=== PATIENT | male | born 1965 | race Caucasian/White ===

== ENCOUNTER 2016-06-10 22:18 | Inpatient (IN) ==
--- NOTE | 2016-06-10 23:16 | Emergency Department Note ---
Disposition Clinical Impression: Congestive heart failure Qualifiers: Congestive heart failure type: unspecified congestive heart failure type Congestive heart failure chronicity: unspecified congestive heart failure chronicity Qualified Code(s): I50.9 - Heart failure, unspecified Disposition: Admitted As Inpatient Condition: Good Time of Disposition: 23:40 SOB HPI - General Chief Complaint: ED Shortness of Breath/Dyspnea Stated Complaint: SOB Time Seen by Provider: 06/10/16 22:55 Source: patient, EMS Limitations: no limitations Nursing Notes Reviewed: Yes Vital Signs Reviewed: Yes - History of Present Illness Pt Subjective Complaint: shortness of breath Onset (ago): hour(s) Context: occurred during exertion Consistency/Duration: constant Improves with: nothing Worsens with: lying flat Known history of: congestive heart failure Treatment prior to arrival: aspirin, diuretics Cough present: No - Related Data Home Medications Medication Instructions Recorded Confirmed Aspirin 81 mg PO DAILY 06/11/16 06/11/16 Atorvastatin Calcium 40 mg PO HS 06/11/16 06/11/16 Bupropion HCl 150 mg PO DAILY 06/11/16 06/11/16 Carvedilol 6.25 mg PO BID 06/11/16 06/11/16 Cholecalciferol (Vitamin D3) 2,000 unit PO DAILY 06/11/16 06/11/16 Furosemide [Lasix] 40 mg PO DAILY 06/11/16 06/11/16 Glipizide 5 mg PO BID 06/11/16 06/11/16 Lisinopril 10 mg PO DAILY 06/11/16 06/11/16 Metformin HCl 850 mg PO TID 06/11/16 06/11/16 Spironolactone 06/11/16 Testosterone [Androderm] 2 mg TD DAILY 06/11/16 06/11/16 Allergies Allergy/AdvReac Type Severity Reaction Status Date / Time No Known Allergies Allergy Verified 06/10/16 22:20 All systems ED: reviewed and negative except as stated. Constitutional: Denies: fever, chills Eyes: Denies: eye pain ENT ED: Denies: ear pain Cardiovascular: Reports: as per HPI, dyspnea on exertion Respiratory: Reports: as per HPI Gastrointestinal: Denies: abdominal pain, nausea, vomiting Genitourinary: Denies: dysuria Musculoskeletal: Denies: back pain Integumentary: Denies: rash Neurological: Denies: weakness Hematological/Lymphatic: Denies: easy bleeding Allergic/Immunologic: Denies: facial swelling Past Medical History - Past Medical History Medical history: Reports: CHF, diabetes, hyperlipidemia Psychiatric history: Reports: depression - Social History Smoking Status: Never smoker Smokeless Tobacco Status: No Alcohol use: Reports: none Drug use: Reports: none Physical Exam - General Limitations: no limitations General appearance: alert Course Course Narrative: Patient is a 51-year-old male diabetic with known history of congestive heart failure that arrives via squad from [place]. He was seen over there for concern of dyspnea had started earlier today, that was accompanied with when he described as a vice senior software qa engineer pressure over his chest. He stated he was walking his dog when the dyspnea and chest pain started. He denied any nausea, diaphoresis, or radiation of pain to his extremities or neck. Patient states that he has not had a stress test in quite some time. He had been seeing a shipyard helper at the [facility] prior to the shipyard helper leaving. He does have his pacemaker analyzed there every 6 months. Denies any recent issues. He states he uses oxygen intermittently during the day, and during the night with his CPAP. Denies any h/o liver disease, or alcohol abuse. He had a chest x-ray that shows probable moderate pulmonary edema. he also had an abnormal CT with contrast that showed no evidence of pulmonary embolism however there was findings compatible with pulmonary edema and congestive heart failure. Patient tells me that since there were no beds available at the [facility] he was transferred here to [place] for further evaluation. Patient seen and examined. He is in no acute distress. Nontoxic. Likely tachycardic, 95 O2 sats on 2 L oxygen. EKG performed upon arrival, sinus tachycardia nonspecific T waves, no sign of ST changes. Patient states that his chest pain has improved. He is feeling comfortable at this time. Lungs sounds no crackles; mild LE edema but pt states no worse than normal. [facility]. Labs show elevatedLiver enzymes, CK, troponin within normal limits. d-dimer. Pt given 325mgASA and 10mg Lasix IV at [facility] - Reevaluation(s) Reevaluation #1: Discussed pt with hospitalist Dr. [place], who accepted patient, and also advised since pt only received 10mg IV lasix at [facility] will order a dose now. 20 mg if pt does not seem fluid overloaded. Time: 23:39 Vital Signs Temperature 98.7 F 06/10/16 22:20 Pulse Rate 108 06/10/16 22:20 Respiratory Rate 18 06/10/16 22:20 Blood Pressure 129/90 06/10/16 22:20 O2 Sat by Pulse Oximetry 92 L 06/10/16 22:20 Temperature 97.7 F 06/11/16 04:00 Pulse Rate 104 06/11/16 04:00 Respiratory Rate 20 06/11/16 04:00 Blood Pressure 145/2 06/11/16 04:00 O2 Sat by Pulse Oximetry 90 L 06/11/16 04:00 Oxygen Delivery Oxygen Delivery Nasal Cannula
[2016-06-10] MEDS ORDERED: Furosemide 20 MG/2 ML VIAL IVP ONE (23:35)
--- NOTE | 2016-06-10 23:49 | Emergency Department Note ---
START Narrative - START START: I examined this patient and my medical decision-making was reviewed with the EXCELLENCE LEADER/PA/Advanced Practice Nurse/Resident Physician. I agree with the documented findings, disposition and treatment plan as described except to the extent set forth below. This is a 51-year-old gentleman who was sent over from the [facility] for a CHF exacerbation. Patient states he has been short of breath for the last few hours. Patient denies any chest pain. Patient does have a pacemaker in place. Patient states he has never had any cardiac stents placed but he has had a heart cath in the past. Patient denies any fevers. Patient states she has actually been losing weight steadily over the last few months and has not gained any recently. Patient was accepted for admission. 23:49.
[2016-06-11] MEDS ORDERED: Dextrose Gel 15 GM PO PRN ×2 (03:28)
[2016-06-11] MEDS ORDERED: Acetaminophen 325 MG TABLET PO PRN (03:28)
[2016-06-11] MEDS ORDERED: *HR* Morphine 2 MG/ML SYRINGE IVP PRN (03:28)
[2016-06-11] MEDS ORDERED: Ondansetron 4 MG/2 ML VIAL IVP PRN (03:28)
[2016-06-11] MEDS ORDERED: *HR* Dextrose 50 % in Water (Syg) 50 ML SYRINGE IVP PRN (03:28)
[2016-06-11] MEDS ORDERED: D5% in Water 1,000 ML IV PRN (03:28)
[2016-06-11] MEDS ORDERED: Naloxone 0.4 MG/ML INJ IVP PRN (03:28)
--- NOTE | 2016-06-11 03:39 | Internal Med History&Physical ---
Date of Encounter: 06/11/16 Time of Encounter: 02:45 Internal Medicine - H&P: HPI Chief complaint: SOB X 1 DAY Admitted From: Hospital to Hospital Transfer Plans for Post Hospital Care: Home History of present illness: Mr. Winston is a 51 year old male Vet, with medical history significant for DM2 , fatty liver, NATHALY, non-ischemic cardiomyopathy s/p PPM/ICD, COPD on home oxygen , HTN as per patient. presents because at about 2 pm, he realized he developed tightness in his chest, and shortness of breath, AT THAT TIME HE WAS WALKING HIS DOG. It was The episode lasted 5-10 minutes, symptoms resolved when he sat down for some time. He had a similar episode on May 31, 2016. However , he did not think much of it at that time as symptoms resolved spontaneously. This time, he call and was sent to the [facility] by EMS, HOWEVER, THERE WERE NO BEDS AVAILABLE AT THE [facility], he was referred to [facility]. No nausea, diaphoresis, or radiation of pain to his extremities or neck. hE REPORT CHRONIC EXERTIONAL DYSPNEA, and orthopnea. He reports unintentional weight loss of about 20 lbs the past 4 months. HE HAS NEEN UNABLE TO LAY FLAT, PREFERRING TO USE HIS RECLINER RATHER. He reports he was diagnosed of CHF in 2012, he was informed his heart was working under 30%, he however reports that [facility] did not find significant blockages. He is FULL CODE as per discussion. Medical history: cirrhosis, CHF (systolic, chronic), COPD, diabetes, hyperlipidemia, hypertension, other (NATHALY) Psychiatric history: depression Surgical History: pacemaker/AICD Smoking Status: Never smoker Smokeless Tobacco Status: No Alcohol use: none Drug use: none Family history: mother was diabetic ROS: See HPI, a 10-point ROS was performed, positives and relevant negatives are detailed, system-symptoms not mentioned is assumed negative unless other lujan stated. Vital Signs Temperature 98.7 F 06/10/16 22:20 Pulse Rate 108 06/10/16 22:20 Respiratory Rate 18 06/10/16 22:20 Blood Pressure 129/90 06/10/16 22:20 O2 Sat by Pulse Oximetry 92 L 06/10/16 22:20 Temperature 98.7 F 06/10/16 22:20 Pulse Rate 108 06/10/16 22:20 Respiratory Rate 18 06/10/16 22:20 Blood Pressure 129/90 06/10/16 22:20 O2 Sat by Pulse Oximetry 95 06/10/16 22:28 O/E: Morbidly obese, not in distress, HEENT: Not pale, anicteric, afebrile, acyanotic, no JVD Chest: CTAB, AICD palpable Heart/CVS: RRR, HS1/2, no murmur Abdomen: distended, soft, non-tender, no masses. FISCAL ACCOUNTING CLERK: AAO x 3, no gross focal neurological deficits, PERRL/EOMI. Skin: No active skin lesion. Extremities: mild barely pitting pedal edema (chronic vs superimposed lymphedema ), normal pedal pulses, no calf tenderness Labs and imaging completed at [facility]. Reviewed . CT CHEST CXR: Consistent with cardiomegaly with moderate pulmonary edema He had a chest x-ray that shows probable moderate pulmonary edema. he also had an abnormal CT with contrast that showed no evidence of pulmonary embolism however there was findings compatible with pulmonary edema and congestive heart failure, with hepatic cirrhosis & mediastinal lymphadenopathy. Initial troponin 0.04, AST/ALT mildly elevated, BNP 1328. IMP Acute on chronic systolic heart failure Elevated troponin, like due to troponin leak/demand ischemia, given a history of clean coronaries in [facility] in 2012. Chronic morbidities Systolic CHF, non-ischemic cardiomyopathy HTN DM2 NATHALY Depression Morbid obesity PLAN Admit to telemetry 2D ECHO IV Lasix 60mg QD X 2 doses Monitior electrolytes. Cardiology consult. Continue other medications of chronic morbidities, including beta blockers, ACEI and statins DVT prophylaxis I discussed my findings and assessment with the patient, he verbalized understanding and is agreeable to admission. He is admitted for evaluation and treatment of acute on chronic systolic heart failure Past Med Surg Social Fam HX - Past Medical History Medical history: CHF, diabetes, hyperlipidemia Psychiatric history: depression - Social History Smoking Status: Never smoker Smokeless Tobacco Status: No Alcohol use: none Drug use: none - Family History Mother Hx Family Medical Disorders: Yes (diabetic) Internal Medicine - H&P: Meds Aspirin [Lo-Dose Aspirin EC] 81 mg PO DAILY 06/11/16 [History] Atorvastatin [Lipitor] 40 mg PO DAILY 06/11/16 [History] Bupropion HCl [Zyban] 150 mg PO DAILY 06/11/16 [History] Carvedilol [Coreg] 6.25 mg PO BID 06/11/16 [History] Cholecalciferol (D-3) [Vitamin D] 2,000 unit PO DAILY 06/11/16 [History] Furosemide [Lasix] 40 mg PO DAILY 06/11/16 [History] GlipiZIDE [Glucotrol] 5 mg PO BID 06/11/16 [History] Lisinopril [Zestril] 10 mg PO DAILY 06/11/16 [History] Metformin [Glucophage] 850 mg PO TID 06/11/16 [History] Spironolactone [Aldactone] 25 mg PO DAILY 06/11/16 [History] Testosterone [Androderm] 2 mg TD DAILY 06/11/16 [History] Allergies No Known Allergies Allergy (Verified 06/10/16 22:20) All Systems PM: A 10-system review of systems was performed and is negative for pertinent findings except as documented above in the HPI. - Constitutional Vitals: Temp Pulse Resp BP Pulse Ox 98.1 F 102 22 122/85 93 L 06/11/16 01:07 06/11/16 01:07 06/11/16 01:07 06/11/16 01:07 06/11/16 01:07 Internal Med - H&P Results - Labs CBC & Chem 7: 06/11/16 09:53 06/12/16 12:13
[2016-06-11 05:11] LABS: Chol/HDL Ratio 6.1 (0-4.9)
--- NOTE | 2016-06-11 06:44 | Event Note ---
Date of Encounter: 06/11/16 Time of Encounter: 05:10 I had ordered solumedrol to control a susposedly rapidly progressive erythematous rash (as I was informed had spread and was more in ense over a matter of hours), patient developed aggression subseqtly. IMP Dermatitis, report of rapid progression. Corticosteroid-induced psychotic episode. Sleep apnea PLAN 1 dose of Ativan and Haloperidol, 1mg and 2.5mg respectively DC SOLUMEDROL De-escalate to 2 point restraint Maintain a sitter BiPAP, continous pulse ox.
[2016-06-11] MEDS ORDERED: *HR* GlipiZIDE 5 MG TABLET PO SCH (09:00)
--- NOTE | 2016-06-11 09:19 | Internal Med Progress Note ---
<Kevin Kaur - Last Filed: 06/11/16 11:02> Date of Encounter: 06/11/16 Time of Encounter: 09:18 - Assessment and plan (1) Acute on chronic systolic (congestive) heart failure Current Visit: Yes Status: Acute Assessment and plan: Per pt, last echo in 2012, EF was around 30%, AICD in place, cardio was consulted, obtain echo, con't IV lasix, strict i and o's, check daily weight and daily fluid restriction. Con't coreg and lisinopril. (2) Elevated troponin Current Visit: Yes Status: Acute Assessment and plan: Adynamic, no active chest pain, likely 2/2 demand ischemia in a setting of acute on chronic systolic CHF. (3) AICD (automatic cardioverter/defibrillator) present Current Visit: Yes Status: Acute (4) HLD (hyperlipidemia) Current Visit: Yes Status: Acute Assessment and plan: Lipid panel reviewed, con't zocor, diet and lifestyle modifications. Qualifiers: Qualified Code(s): E78.5 - Hyperlipidemia, unspecified (5) DM (diabetes mellitus), type 2 Current Visit: Yes Status: Acute Assessment and plan: Hold po home med, con't SSI. Qualifiers: Qualified Code(s): E11.9 - Type 2 diabetes mellitus without complications (6) DVT prophylaxis Current Visit: Yes Status: Acute Assessment and plan: Lovenox sq. - Subjective Interval history: Pt seen and examined, states that SOB is better than yesterday, chest pressure gone. - Constitutional Vitals: Temp Pulse Resp BP Pulse Ox 97.6 F 101 14 129/92 90 L 06/11/16 07:57 06/11/16 07:57 06/11/16 07:57 06/11/16 07:57 06/11/16 07:57 General appearance: Present: cooperative, A&O X 3, morbidly obese, pleasant, answers questions appropriately - Head Head exam: Present: atraumatic, normocephalic - Eye Eye exam: Present: PERRL, conjuntiva pink, sclera anicteric Pupils: Present: PERRL - Neck Neck exam general surgery: Present: supple, trachea midline. Absent: lymphadenopathy - Respiratory Respiratory exam: Present: rales (at base b/l). Absent: accessory muscle use, rhonchi, wheezes - Cardiovascular Cardiovascular exam: Present: RRR, +S1, +S2. Absent: diastolic murmur, gallop, rubs, systolic murmur - GI/Abdominal GI/Abdominal exam: Present: normal bowel sounds, soft, no peritoneal signs. Absent: distended, tenderness - Extremities Exam Extremities exam: Present: pedal edema (mild non-pitting b/l), warm, radial pulses palpable and symetrical. Absent: calf tenderness, cyanotic - Neurological Exam Neurological exam: Present: CN II-XII intact, oriented X3, no focal deficits. Absent: pronater drift, facial droop, speech deficit - Skin Skin exam: Present: dry, intact Internal Medicine: Result - Labs CBC & Chem 7: 06/11/16 09:53 06/11/16 09:53 Labs: Cardiac Enzymes 06/11/16 Range/Units 04:13 Troponin I 0.07 H* (0-0.03) ng/mL Consult Discharge Plan - Plan [facility]errals: [facility] [Primary Care Provider] - <Luke Victoria - Last Filed: 06/11/16 17:32> Date of Encounter: 06/11/16 - Assessment and plan (1) Acute and chronic respiratory failure with hypoxia Current Visit: Yes Status: Acute Assessment and plan: Oxygen supplementation. (2) Acute on chronic systolic (congestive) heart failure Current Visit: Yes Status: Acute (3) DM (diabetes mellitus), type 2 Current Visit: Yes Status: Chronic Qualifiers: Diabetes mellitus complication status: with hyperglycemia Diabetes mellitus [facility] insulin use: without [facility] use Qualified Code(s): E11.65 - Type 2 diabetes mellitus with hyperglycemia (4) HLD (hyperlipidemia) Current Visit: Yes Status: Chronic Qualifiers: Hyperlipidemia type: mixed hyperlipidemia Qualified Code(s): E78.2 - Mixed hyperlipidemia (5) Elevated troponin Current Visit: Yes Status: Acute - Constitutional Vitals: Temp Pulse Resp BP Pulse Ox 97.9 F 91 14 91/76 87 L 06/11/16 15:15 06/11/16 15:15 06/11/16 15:15 06/11/16 15:15 06/11/16 15:15 Internal Medicine: Result - Labs CBC & Chem 7: 06/11/16 09:53 06/11/16 09:53 Labs: Short CBC 06/11/16 Range/Units 09:53 WBC 8.8 (4.3-11.1) K/mcL Hgb 14.4 (12.9-16.9) g/dL Hct 42.8 (37.5-50.1) % Plt Count 221 (140-400) K/mcL Neutrophils # 6.3 (1.6-8.9) K/mcL BMP 06/11/16 09:53 Sodium 138 Potassium 3.7 Chloride 98 Carbon Dioxide 29 BUN 13 Creatinine 0.95 Glucose 251 H Calcium 9.7 Cardiac Enzymes 06/11/16 06/11/16 Range/Units 04:13 09:53 Troponin I 0.07 H* 0.06 H* (0-0.03) ng/mL - Attending Attestation I examined this patient and my medical decision-making was reviewed with the Resident Physician on 06/11/16. I agree with the documented findings, disposition and treatment plan as described except to the extent set forth below. Mr. Winston is currently admitted for acute hypoxic resp failure from acute exac CHF. He remains moderate to high risk due to potential for worsening respiratory function and cardiac function. Mr. Winston is starting to feel better. He has diuresed quite a bit. No cough. No fever. Can take a deep breath now. Exam Alert. Comfortable Heart reg Lungs with rales bilaterally Abd soft I/P 1. Acute exc CHF 2. Hypoxia 3. Obesity Further diagnoses and plan as above.
[2016-06-11] MEDS: Insulin LISPRO 300 UNITS/3 ML VIAL SQ SCH ×4 (09:54→21:24)
[2016-06-11] MEDS: *HR* Enoxaparin 40 MG/0.4 ML SYRINGE SQ SCH (09:54)
[2016-06-11] MEDS: Aspirin 81 MG TAB.CHEW PO SCH (09:55)
[2016-06-11] MEDS: TESTOSTERONE 2 MG TP SCH (09:56)
[2016-06-11] MEDS: Furosemide 40 MG/4 ML VIAL IVP SCH (09:56)
[2016-06-11] MEDS: Cholecalciferol (D-3) 1,000 UNIT TABLET PO SCH (09:57)
[2016-06-11 10:04] LABS: Basophils # 0.1 K/mcL (0.0-0.2); Basophils % 0.7 %; Eosinophils # 0.3 K/mcL (0.0-0.6); Eosinophils % 3.3 %; Hematocrit 42.8 % (37.5-50.1); Hemoglobin 14.4 g/dL (12.9-16.9); Immature Granulocytes % 0.3 % (0-4); Lymphocytes # 1.5 K/mcL (0.6-4.6); Lymphocytes % 16.8 %; Mean Corpuscular HGB Conc 33.6 g/dL (31.6-35.5); Mean Corpuscular Hemoglobin 30.1 pg (28.0-33.3); Mean Corpuscular Volume 89.5 fL (83.0-100.0); Mean Platelet Volume 10.2 fL (9.4-12.4); Monocytes # 0.7 K/mcL (0.0-1.3); Monocytes % 7.5 %; Neutrophils # 6.3 K/mcL (1.6-8.9); Platelet Count 221 K/mcL (140-400); Red Blood Count 4.78 M/mcL (4.19-5.50); Red Cell Distribution Width 13.9 % (11.5-14.5); Segmented Neutrophils % 71.4 %
--- NOTE | 2016-06-11 10:16 | Cardiology Consult Note ---
Date of Encounter: 06/11/16 Time of Encounter: 09:50 Assessment and Plan (1) Elevated troponin Current Visit: Yes Status: Acute Mild adynamic troponin elevation (0.04, 0.07) in the setting of acute on chronic CHF. Likely secondary to demand ischemia. No ischemic ECG changes. Reported LHC in 2013--was told no significant blockages. Continue asa, statin, and betablocker. Continue to trend troponin to total 3. Echocardiogram pending. (2) Congestive heart failure Current Visit: Yes Status: Acute Suspect acute on chronic systolic CHF. Reports dx in 2013, EF reportedly 28%, had LHC and told no significant blockages. Reports PPM/ICD implant, follows with [facility] in [place] for device checks. CT chest ([facility]): small bilateral pleural effusions, CHF/pulmonary edema. IV lasix given at [facility]--reports symptoms have improved. Echocardiogram pending. Continue IV lasix, betablocker, ACEi, and aldactone. Strict I&O's, daily weights, 2L fluid restriction diet. Reports [facility] Piercer retired, recommend follow-up with [facility]. Qualifiers: Congestive heart failure type: systolic Congestive heart failure chronicity : acute on chronic Qualified Code(s): I50.23 - Acute on chronic systolic ( congestive) heart failure Discussion w patient/family: The assessment and plan as outlined above was discussed with the patient and/or family members who expressed understanding and agreement. All questions were answered. Thank you for involving us in the care of your patient. Please call with any questions. The patient will be discussed and reviewed with Dr. Novoa; changes to be made accordingly. History of Present Illness Consult date: 06/11/16 Requesting physician: Steve England Consult reason: Elevated troponin Chief complaint: Chest sqeezing, CHF History of present illness: Mr. Winston is a 51 year old male with PMH significant for DMII, fatty liver, NATHALY, sCHF s/p PPM/ICD, COPD (home O2), & HTN who presented to the [facility] after an episode of chest squeezing yesterday after taking his dog outside. Associated symptoms include shortness of breath. Reports symptoms lasted 2-3 minutes; improved after he sat down. Recalls similar episode, mild, on . Reports medication compliance. States intentional weight loss (~20 lbs) over the past 4 months. Describes chronic orthopnea--unable to lay flat, sleeps in recliner. [facility] Initial troponin 0.04, AST/ALT mildly elevated, BNP 1328. CT thorax demonstrates pulmonary edema, small bilateral pleural effusions, CHF; cirrhosis & mediastinal lymphadenopathy also described (negative for PE) Reports dx of CHF in 2013--he was told his heart was only working "28%." Underwent LHC at that time and told he did not have significant blockages. Past Med Surg Social Fam HX - Past Medical History Source: old records reviewed Medical history: cirrhosis, CHF (systolic, chronic), COPD, diabetes, hyperlipidemia, hypertension, other (NATHALY) Psychiatric history: depression - Past Surgical History Surgical History: pacemaker/AICD - Social History Smoking Status: Never smoker Smokeless Tobacco Status: No Alcohol use: none Drug use: none - Family History Mother Hx Family Medical Disorders: Yes (diabetic) Medications and Allergies Aspirin [Lo-Dose Aspirin EC] 81 mg PO DAILY 06/11/16 [History] Atorvastatin [Lipitor] 40 mg PO DAILY 06/11/16 [History] Bupropion HCl [Zyban] 150 mg PO DAILY 06/11/16 [History] Carvedilol [Coreg] 6.25 mg PO BID 06/11/16 [History] Cholecalciferol (D-3) [Vitamin D] 2,000 unit PO DAILY 06/11/16 [History] Furosemide [Lasix] 40 mg PO DAILY 06/11/16 [History] GlipiZIDE [Glucotrol] 5 mg PO BID 06/11/16 [History] Lisinopril [Zestril] 10 mg PO DAILY 06/11/16 [History] Metformin [Glucophage] 850 mg PO TID 06/11/16 [History] Spironolactone [Aldactone] 25 mg PO DAILY 06/11/16 [History] Testosterone [Androderm] 2 mg TD DAILY 06/11/16 [History] Allergies No Known Allergies Allergy (Verified 06/10/16 22:20) All Systems Review: A 10-system review of systems was performed and is negative for pertinent findings except as documented above in the HPI. - Cardiovascular Cardiovascular: as per HPI Physical Examination Vital Signs, Last 4 Hours Temp Pulse Resp BP Pulse Ox 06/11/16 07:57 97.6 F 101 14 129/92 90 L General: Conversant, No Apparent Distress, Other (morbidly obese) Cardiac: Reg Rate and Rhythm (tachycardiac) Lungs: Other (Bibasilar rales) Neuro: Alert and responsive Abdomen: Soft Skin: No rashes noted on visualized skin Musculoskeletal: No Chest Wall Tenderness Extremities: Normal Pulses, Other (BLE edema, states is chronic) Results 06/11/16 09:53 06/11/16 09:53 Lab Results 06/11/16 06/11/16 04:13 09:53 WBC 8.8 Hgb 14.4 Hct 42.8 Plt Count 221 Troponin I 0.07 H* - Imaging and Cardiology Other Results: Telemetry: avg HR HR [address] ST. No signficant events noted. - EKG Interpretation EKG results cardiology: personally reviewed Consult Discharge Plan - Plan [facility]errals: [facility] [Primary Care Provider] -
[2016-06-11 10:17] LABS: BUN/Creatinine Ratio 14 (6-26); Blood Urea Nitrogen 13 mg/dL (8-26); Calcium 9.7 mg/dL (8.6-10.8); Carbon Dioxide 29 mEq/L (19-29); Chloride 98 mEq/L (98-109); Glucose 251 mg/dL (70-99); Magnesium 1.9 mg/dL (1.6-2.6); Osmolality,Calculated 295 (280-300); Potassium 3.7 mEq/L (3.5-4.5); Sodium 138 mEq/L (136-145); eGFR For African Americans > 60 (> 60); eGFR For Non-African Americans > 60 (> 60)
--- NOTE | 2016-06-11 11:52 | Electrocardiograph Report ---
[facility] Test Date: 2016-06-10 Pat Name: Ken Winston Department: 105 Room: 2NE23 Gender: M [employer] Officer: JOHNSON : 1965 Requested By: Orlin Turner Order Number: [id number] Reading MD: Hebert Colón MD Measurements Intervals [place] Rate: 106 P: 47 LA: 176 QRS: 4 QRSD: 129 T: 75 QT: 367 QTc: 429 Interpretive Statements SINUS TACHYCARDIA INTRAVENTRICULAR CONDUCTION DELAY POOR R WAVE PROGRESSION Electronically Signed On 06-11-16 11:52:26 EST by Hebert Colón MD
[2016-06-11] MEDS ORDERED: Perflutren Lipid Microsphere 1.3 ML in 0.9 % Sodium Chloride 8.7 ML IVP ONE (13:41)
--- NOTE | 2016-06-11 14:34 | ECHO - Doppler Report ---
Echo with Imaging Enhancement Agent Name: Ken Winston Date of Study: 06/11/2016 Date: 1965 Ht: 69.0 in Medical Record#: [id number] Age: 51 Wt: 306.0 lb Gender: Male BSA: 2.47 Order #: [id number] Location: [facility] Room #: [id number] Reading Physician: Manny Hodge DO, JOSE ANTONIO, HEATHER VENCES Business Management Intern: Rupesh Farrell RN Ordering Physician: Micah Sotelo MD Primary Physician: [facility] Indications: Congestive heart failure Impressions: LVEF 20%. Severely dilated left ventricle. Severe global left ventricular systolic dysfunction. Indeterminate diastolic function. There is no LV thrombus. Dilated right ventricle with normal appearing function. Severely dilated left atrium. Moderately dilated right atrium. Moderate mitral regurgitation. Mild pulmonary hypertension. Estimated RVSP is 41 mmHg. A device lead was visualized in the right atrium and right ventricle. Left Ventricular Wall Motion: Rest Echo Findings The apex, apical inferior, mid inferior, basal inferior, apical anterior, mid anterior, basal anterior, apical septal, mid inferior septal, basal inferior septal, apical lateral, mid anterior lateral, basal anterior lateral, mid anterior septal, mid inferior lateral, basal anterior septal and basal inferior lateral banegas were hypokinetic. Findings: Study Quality * Technically sub-optimal due to poor echocardiographic windows. ECG Findings * Sinus tachycardia. Left Ventricle * LVEF 20%. * Normal LV wall thickness. * Severely dilated left ventricle. * Severe global left ventricular systolic dysfunction. * Indeterminate diastolic function. * There is no LV thrombus. Right Ventricle * Dilated right ventricle with normal appearing function. Left Atrium * Severely dilated left atrium. Right Atrium * Moderately dilated right atrium. Interatrial Septum * Interatrial septum not well evaluated. Aortic Valve * Trileaflet aortic valve with normal function. * No aortic regurgitation. * No aortic stenosis. Mitral Valve * Normal mitral valve structure. * Moderate mitral regurgitation. * No mitral stenosis. Tricuspid Valve * Normal tricuspid valve structure and function. * Trace tricuspid regurgitation. * Mild pulmonary hypertension. * Estimated RVSP is 41 mmHg. * Estimated RA pressure is 5 mmHg. Pulmonic Valve * Normal pulmonic valve structure and function. * Trace pulmonic regurgitation. Aorta * Normally sized aortic root. Pericardium * The pericardium appears normal. IVC * Normal IVC dimensions and inspiratory collapse. Device lead * A device lead was visualized in the right atrium and right ventricle. Pulmonary Artery * Normal visualized portions of the main pulmonary artery. History Hypertension Diabetes Hypercholesteremia Family History of CAD Congestive Heart Failure Pacer/ICD Implant Contrast: Definity 1.3 ml in 8.7 ml of saline 3 ml. Measurements: BP: 119/ 90 2D Normal Values RVIDd: 3.30 cm <2.7 cm IVSd: 1.00 cm 0.6 - 1.0 cm LVIDd: 8.00 cm 3.7 - 5.6 cm LVPWd: 1.00 cm 0.6 - 1.1 cm LVIDs: 7.00 cm 1.5 - 3.6 cm LA: 5.20 cm 2.0 - 4.0cm %FS: 12.50 cm >25 % LVOT Diam: 2.00 cm LA volume: 200 Mitral Valve Peak E:.98 m/sec Peak E' Lat Yong:12.7 cm/s Peak E' Med Yong:5.36 cm/s E/E' Lat Ratio:7.7 E/E' Med Ratio:18.2 Tricuspid Valve TV Regurg Peak Grad: 36.00mmHg TV Regurg Peak Yong: 2.99m/sec Updated by Manny Hodge DO, FACStefano, HEATHER VENCES on 06/11/2016 2:29:22 PM electronically signed on 06/11/2016 2:29:47 PM with status of Final Wall Motion Still: 1=Normal, 2=Hypokinesis, 3=Akinesis, 4=Dyskinesis, 5=Aneurysmal, 6=Hyperkinetic, X=Not Visualized (Blank)=Missing
[2016-06-12] MEDS ORDERED: Lactulose Oral Soln 20 GM/30 ML UDC PO ONE (00:50)
[2016-06-12] MEDS: *HR* Enoxaparin 40 MG/0.4 ML SYRINGE SQ SCH (06:16)
[2016-06-12] MEDS: Aspirin 81 MG TAB.CHEW PO SCH (08:02)
[2016-06-12] MEDS: Cholecalciferol (D-3) 1,000 UNIT TABLET PO SCH (08:02)
[2016-06-12] MEDS: Furosemide 40 MG/4 ML VIAL IVP SCH (08:03)
[2016-06-12] MEDS: TESTOSTERONE 2 MG TP SCH (08:03)
[2016-06-12] MEDS: Insulin LISPRO 300 UNITS/3 ML VIAL SQ SCH ×4 (08:04→21:17)
--- NOTE | 2016-06-12 10:05 | Internal Med Progress Note ---
<Kevin Kaur - Last Filed: 06/12/16 14:56> Date of Encounter: 06/12/16 Time of Encounter: 10:05 - Assessment and plan (1) Acute on chronic systolic (congestive) heart failure Current Visit: Yes Status: Acute Assessment and plan: Echo showed LVEF of 20%, AICD in place, cardio was consulted, adjusted coreg dosage and switch back po lasix home dosage, clinically improving, likely to be d/c tmw. (2) Elevated troponin Current Visit: Yes Status: Acute Assessment and plan: Adynamic, no active chest pain, likely 2/2 demand ischemia in a setting of acute on chronic systolic CHF. (3) HLD (hyperlipidemia) Current Visit: Yes Status: Chronic Assessment and plan: Lipid panel reviewed, con't zocor, diet and lifestyle modifications. (4) DM (diabetes mellitus), type 2 Current Visit: Yes Status: Chronic Assessment and plan: Hold po home med, con't SSI. (5) DVT prophylaxis Current Visit: Yes Status: Acute Assessment and plan: Lovenox sq. - Subjective Interval history: Pt seen and examined, states that SOB is better than yesterday, chest pressure gone. - Constitutional Vitals: Temp Pulse Resp BP Pulse Ox 97.9 F 96 18 111/77 92 L 06/12/16 07:48 06/12/16 07:48 06/12/16 07:48 06/12/16 07:48 06/12/16 07:51 General appearance: Present: cooperative, A&O X 3, morbidly obese, pleasant, answers questions appropriately - Head Head exam: Present: atraumatic, normocephalic - Eye Eye exam: Present: PERRL, conjuntiva pink, sclera anicteric Pupils: Present: PERRL - Neck Neck exam general surgery: Present: supple, trachea midline. Absent: lymphadenopathy - Respiratory Respiratory exam: Present: rales (at base b/l). Absent: accessory muscle use, rhonchi, wheezes - Cardiovascular Cardiovascular exam: Present: RRR, +S1, +S2. Absent: diastolic murmur, gallop, rubs, systolic murmur - GI/Abdominal GI/Abdominal exam: Present: normal bowel sounds, soft, no peritoneal signs. Absent: distended, tenderness - Extremities Exam Extremities exam: Present: warm, radial pulses palpable and symetrical. Absent : calf tenderness, cyanotic, pedal edema - Neurological Exam Neurological exam: Present: CN II-XII intact, oriented X3, no focal deficits. Absent: pronater drift, facial droop, speech deficit - Skin Skin exam: Present: dry, intact Internal Medicine: Result - Labs CBC & Chem 7: 06/11/16 09:53 06/12/16 12:13 Labs: Short CBC 06/11/16 Range/Units 09:53 WBC 8.8 (4.3-11.1) K/mcL Hgb 14.4 (12.9-16.9) g/dL Hct 42.8 (37.5-50.1) % Plt Count 221 (140-400) K/mcL Neutrophils # 6.3 (1.6-8.9) K/mcL BMP 06/11/16 09:53 Sodium 138 Potassium 3.7 Chloride 98 Carbon Dioxide 29 BUN 13 Creatinine 0.95 Glucose 251 H Calcium 9.7 Cardiac Enzymes 06/11/16 Range/Units 09:53 Troponin I 0.06 H* (0-0.03) ng/mL Consult Discharge Plan - Plan Instructions: Heart Failure (DC), Implantable Cardioverter Defibrillator (DC), Implantable Cardioverter Defibrillator (GEN), Diabetes Mellitus Type 2 in Adults (DC), Hyperlipidemia (DC), Hyperlipidemia (GEN) Referrals: [place],PCP [Primary Care Provider] - Manny Hodge DO [Partnered Physician] - 06/24/16 2:00 pm (follow up at [facility]) <Luke Victoria - Last Filed: 06/12/16 18:05> Date of Encounter: 06/12/16 - Assessment and plan (1) Acute and chronic respiratory failure with hypoxia Current Visit: Yes Status: Acute (2) Acute on chronic systolic (congestive) heart failure Current Visit: Yes Status: Acute (3) DM (diabetes mellitus), type 2 Current Visit: Yes Status: Chronic Qualifiers: Diabetes mellitus complication status: with hyperglycemia Diabetes mellitus detention insulin use: without equipment operator intermodal yard use Qualified Code(s): E11.65 - Type 2 diabetes mellitus with hyperglycemia (4) HLD (hyperlipidemia) Current Visit: Yes Status: Chronic Qualifiers: Hyperlipidemia type: mixed hyperlipidemia Qualified Code(s): E78.2 - Mixed hyperlipidemia (5) Elevated troponin Current Visit: Yes Status: Acute - Constitutional Vitals: Temp Pulse Resp BP Pulse Ox 97.3 F L 102 18 116/87 95 06/12/16 17:00 06/12/16 17:00 06/12/16 17:00 06/12/16 17:00 06/12/16 17:00 Internal Medicine: Result - Labs CBC & Chem 7: 06/11/16 09:53 06/12/16 12:13 Labs: BMP 06/12/16 12:13 Sodium 135 L Potassium 4.1 Chloride 97 L Carbon Dioxide 27 BUN 17 Creatinine 0.89 Glucose 201 H Calcium 9.9 - Attending Attestation I examined this patient and my medical decision-making was reviewed with the Resident Physician on 06/12/16. I agree with the documented findings, disposition and treatment plan as described except to the extent set forth below. Mr. Winston is currently admitted for acute hypoxic resp failure due to CHF. He remains moderate to high risk due to potential of worsening cardiac and respiratory function. Mr. Winston is feeling somewhat better today. He has diuresed well on IV Lasix. No CP or GI symptoms. Has not walked floor much but is able to get to bathroom without much difficulty. Exam Alert. Comfortable Heart reg Lungs diminished Less edema I/P 1. Acute on chronic hypoxic resp failure 2. Acute exac chronic systolic CHF Further diagnoses and plan as above.
[2016-06-12 13:02] LABS: BUN/Creatinine Ratio 19 (6-26); Blood Urea Nitrogen 17 mg/dL (8-26); Calcium 9.9 mg/dL (8.6-10.8); Carbon Dioxide 27 mEq/L (19-29); Chloride 97 mEq/L (98-109); Glucose 201 mg/dL (70-99); Osmolality,Calculated 287 (280-300); Sodium 135 mEq/L (136-145); eGFR For African Americans > 60 (> 60); eGFR For Non-African Americans > 60 (> 60)
[2016-06-12 13:14] LABS: Potassium 4.1 mEq/L (3.5-4.5)
--- NOTE | 2016-06-12 14:50 | Cardiology Progress Note ---
Date of Encounter: 06/12/16 Time of Encounter: 14:48 Assessment and Plan (1) Congestive heart failure Current Visit: Yes Status: Acute Acute on chronic systolic CHF. Known non-ischemic cardiomyopathy. TTE EF 20%, severely dilated LV, no LV thrombus, dilated RV, moderatly dilated RA. Moderate mitral regurgitation. Reports dx in 2013, EF reportedly 28%, had LHC and told no significant blockages. Reports PPM/ICD implant, follows with [facility] in [place] for device checks. CT chest ([facility]): small bilateral pleural effusions, CHF/pulmonary edema. IV lasix given at [facility]--reports symptoms have improved. Symptoms improved. Net negative 1800 ml. Also diuresed at the [facility] prior to arrival to [facility]. Symptoms improved. Increase carvedilol to 12.5 mg BID. Continue lisinopril. Change lasix to oral maintenance dose. F/u with cardiology in 1-2 weeks. I will coordinate appt. Recommend [facility] heart failure clinic referral in out-pt setting. Cardiology will sign off. Qualifiers: Congestive heart failure type: systolic Congestive heart failure chronicity : acute on chronic Qualified Code(s): I50.23 - Acute on chronic systolic ( congestive) heart failure (2) Elevated troponin Current Visit: Yes Status: Acute Mild adynamic troponin elevation (0.04, 0.07) in the setting of acute on chronic CHF. Likely secondary to demand ischemia. No ischemic ECG changes. Reported LHC in 2012--was told no significant blockages. Continue asa, statin, and betablocker. Discussion w patient/family: The assessment and plan as outlined above was discussed with the patient and/or family members who expressed understanding and agreement. All questions were answered. Thank you for involving us in the care of your patient. Please call with any questions. Subjective Principal diagnosis: Non-ischemic cardiomyoapthy Interval history: Pt reports feeling better after IV diuretic. Denies orthpnea. Objective Vital Signs, Last 4 Hours Temp Pulse Resp BP Pulse Ox 06/12/16 12:17 97.6 F 100 18 103/83 95 General: Conversant, No Apparent Distress HEENT: Atraumatic, Normocephaly, Mucus Membranes Moist Neck: No JVD, Normal carotid pulses Cardiac: Reg Rate and Rhythm, Normal S1 and S2, No Murmur Lungs: Normal Breath Sounds, No Wheeze, Rales, Rhonchi Neuro: Alert and responsive, No focal deficits noted Abdomen: Soft, Non-Tender, Other (Large and round) Skin: No rashes noted on visualized skin Musculoskeletal: No Chest Wall Tenderness Extremities: No Clubbing, No Cyanosis, Normal Pulses, Other (Trace BLE edema. ) Results 06/11/16 09:53 06/12/16 12:13 Lab Results 06/12/16 12:13 Sodium 135 L Potassium 4.1 Chloride 97 L Carbon Dioxide 27 BUN 17 Creatinine 0.89 Glucose 201 H Calcium 9.9 - Imaging and Cardiology Echo: report reviewed (EF 20%) Consult Discharge Plan - Plan Instructions: Heart Failure (DC), Implantable Cardioverter Defibrillator (DC), Implantable Cardioverter Defibrillator (GEN), Diabetes Mellitus Type 2 in Adults (DC), Hyperlipidemia (DC), Hyperlipidemia (GEN) Referrals: [facility] [Primary Care Provider] -
[2016-06-12] MEDS: Furosemide 40 MG TABLET PO SCH (16:54)
[2016-06-13] MEDS: *HR* Enoxaparin 40 MG/0.4 ML SYRINGE SQ SCH (05:32)
--- NOTE | 2016-06-13 07:30 | Internal Med Progress Note ---
Date of Encounter: 06/13/16 Time of Encounter: 07:29 - Assessment and plan (1) Acute on chronic systolic (congestive) heart failure Current Visit: Yes Status: Acute (2) Elevated troponin Current Visit: Yes Status: Acute (3) HLD (hyperlipidemia) Current Visit: Yes Status: Chronic Qualifiers: Hyperlipidemia type: mixed hyperlipidemia Qualified Code(s): E78.2 - Mixed hyperlipidemia (4) DM (diabetes mellitus), type 2 Current Visit: Yes Status: Chronic Qualifiers: Diabetes mellitus complication status: with hyperglycemia Diabetes mellitus fci insulin use: without manager intermediate use Qualified Code(s): E11.65 - Type 2 diabetes mellitus with hyperglycemia (5) DVT prophylaxis Current Visit: Yes Status: Acute - Subjective Interval history: Pt seen and examined, states that SOB is better than yesterday, chest pressure gone. - Constitutional Vitals: Temp Pulse Resp BP Pulse Ox 98.9 F 100 18 153/92 95 06/13/16 03:59 06/13/16 03:59 06/13/16 04:15 06/13/16 03:59 06/13/16 04:15 General appearance: Present: cooperative, A&O X 3, morbidly obese, pleasant, answers questions appropriately Internal Medicine: Result - Labs CBC & Chem 7: 06/11/16 09:53 06/12/16 12:13 Labs: BMP 06/12/16 12:13 Sodium 135 L Potassium 4.1 Chloride 97 L Carbon Dioxide 27 BUN 17 Creatinine 0.89 Glucose 201 H Calcium 9.9 - Impressions Impressions KUB X-Ray 06/12/16 22:13 IMPRESSION: Bowel-gas pattern suggests ileus. D/ / Rao Means MD / Rao Means MD Interpreting Provider: Rao Means MD Consult Discharge Plan - Plan Instructions: Heart Failure (DC), Implantable Cardioverter Defibrillator (DC), Implantable Cardioverter Defibrillator (GEN), Diabetes Mellitus Type 2 in Adults (DC), Hyperlipidemia (DC), Hyperlipidemia (GEN) Referrals: [facility],PCP [Primary Care Provider] - Manny Hodge DO [Partnered Physician] - 06/24/16 2:00 pm (follow up at [facility])
[2016-06-13] MEDS: Insulin LISPRO 300 UNITS/3 ML VIAL SQ SCH ×2 (09:04→12:04)
[2016-06-13] MEDS: Cholecalciferol (D-3) 1,000 UNIT TABLET PO SCH (09:05)
[2016-06-13] MEDS: Aspirin 81 MG TAB.CHEW PO SCH (09:05)
[2016-06-13] MEDS: Furosemide 40 MG TABLET PO SCH (09:05)
[2016-06-13] MEDS: TESTOSTERONE 2 MG TP SCH (09:06)
--- NOTE | 2016-06-13 11:27 | Discharge Summary ---
<NatashaKevin - Last Filed: 06/13/16 11:41> Date of Encounter: 06/13/16 Time of Encounter: 11:20 - Discharge Diagnosis (1) Acute on chronic systolic (congestive) heart failure Priority: Primary Status: Acute (2) Elevated troponin Priority: Secondary Status: Acute (3) HLD (hyperlipidemia) Priority: Secondary Status: Chronic Qualifiers: Hyperlipidemia type: mixed hyperlipidemia Qualified Code(s): E78.2 - Mixed hyperlipidemia (4) DM (diabetes mellitus), type 2 Priority: Secondary Status: Chronic Qualifiers: Diabetes mellitus complication status: with hyperglycemia Diabetes mellitus intermediate insulin use: without buttermaker helper use Qualified Code(s): E11.65 - Type 2 diabetes mellitus with hyperglycemia (5) DVT prophylaxis Priority: Secondary Status: Acute - Discharge Medications Prescriptions: Carvedilol [Coreg] 12.5 mg PO BIDWM #30 tablet Home Medications: Aspirin [Lo-Dose Aspirin EC] 81 mg PO DAILY 06/11/16 [History] Atorvastatin [Lipitor] 40 mg PO DAILY 06/11/16 [History] Bupropion HCl [Zyban] 150 mg PO DAILY 06/11/16 [History] Cholecalciferol (D-3) [Vitamin D] 2,000 unit PO DAILY 06/11/16 [History] Furosemide [Lasix] 40 mg PO DAILY 06/11/16 [History] GlipiZIDE [Glucotrol] 5 mg PO BID 06/11/16 [History] Lisinopril [Zestril] 10 mg PO DAILY 06/11/16 [History] Metformin [Glucophage] 850 mg PO TID 06/11/16 [History] Spironolactone [Aldactone] 25 mg PO DAILY 06/11/16 [History] Testosterone [Androderm] 2 mg TD DAILY 06/11/16 [History] Carvedilol [Coreg] 12.5 mg PO BIDWM #30 tablet 06/13/16 [Rx] Allergies/Adverse Reactions: Allergies No Known Allergies Allergy (Verified 06/10/16 22:20) Procedures/tests Complete & Pending: Procedures Performed prior 72 hours Category Date Time Status EV echocardiogram w enhance Routine Y 06/11/16 03:31 Completed Date of admission: 06/10/16 23:50 [facility] care physician: [facility] Consults: 06/11/16 03:27 Consult to Cardiology [CONS] Routine Comment: Consulting Provider: Cardiology A[facility] Reason for Consult: ACUTE ON CHRONIC SYSTOLIC HEART FAILIURE Call Completed: No Discharging clinician: Kevin Kaur Anticipated date of discharge: 06/13/16 - Patient Status Disposition: Home, Self-Care Condition: Good Functional capacity at discharge: independent ambulation Overall status at discharge: patient is progressing back to baseline - Discharge Instructions Instructions: Carvedilol (By mouth), Heart Failure (DC), Implantable Cardioverter Defibrillator (DC), Implantable Cardioverter Defibrillator (GEN), Diabetes Mellitus Type 2 in Adults (DC), Hyperlipidemia (DC), Hyperlipidemia ( GEN) Follow Up With: Manny Hodge DO [Partnered Physician] - 06/24/16 2:00 pm (follow up at [place] office for hx of chronic systolic chf) [facility] [Primary Care Provider] - (F/u in a week for hospital d/c f/u.) - Diet and Activity Activity: resume usual activities as tolerated Diet: diabetic diet, low fat, low cholesterol, low salt diet Hospital course: Mr. Winston is a 51 year old male with hx of chronic systolic CHF and DM II, came in with dyspnea, admitted for acute on chronic systolic CHF, started on lasix IV, elevated adynamic troponin was likely 2/2 demand ischemia from acute on chronic systolic chf, cardio was consulted, echo this time showed EF of 20%, cardio increased coreg level, pt diuresed well, SOB was back to baseline, although KUB showed ileus, pt had a large bowel movement on a day of discharge, therefore he will be d/c to in stable condition. - Time Spent with Patient Total time spent providing and/or coordinating discharge services: - Constitutional Vitals: Temp Pulse Resp BP Pulse Ox 98.9 F 97 18 128/95 95 06/13/16 03:59 06/13/16 07:47 06/13/16 07:47 06/13/16 07:47 06/13/16 09:00 General appearance: Present: cooperative, A&O X 3, morbidly obese, pleasant, answers questions appropriately - Head Head exam: Present: atraumatic, normocephalic - Eye Eye exam: Present: PERRL, conjuntiva pink, sclera anicteric Pupils: Present: PERRL - Neck Neck exam general surgery: Present: supple, trachea midline. Absent: lymphadenopathy - Respiratory Respiratory exam: Present: CTAB. Absent: accessory muscle use, rales, rhonchi, wheezes - Cardiovascular Cardiovascular exam: Present: RRR, +S1, +S2. Absent: diastolic murmur, gallop, rubs, systolic murmur - GI/Abdominal GI/Abdominal exam: Present: normal bowel sounds, soft, no peritoneal signs. Absent: distended, tenderness - Extremities Exam Extremities exam: Present: warm, radial pulses palpable and symetrical. Absent : calf tenderness, cyanotic, pedal edema - Neurological Exam Neurological exam: Present: CN II-XII intact, oriented X3, no focal deficits. Absent: pronater drift, facial droop, speech deficit - Skin Skin exam: Present: dry, intact <Luke Victoria - Last Filed: 06/13/16 16:01> Date of Encounter: 06/13/16 - Discharge Diagnosis (1) Acute and chronic respiratory failure with hypoxia Priority: Primary Status: Acute (2) Acute on chronic systolic (congestive) heart failure Priority: Primary Status: Acute (3) DM (diabetes mellitus), type 2 Status: Chronic Qualifiers: Diabetes mellitus complication status: with hyperglycemia Diabetes mellitus buttermaker helper insulin use: without intermediate use Qualified Code(s): E11.65 - Type 2 diabetes mellitus with hyperglycemia (4) HLD (hyperlipidemia) Status: Chronic Qualifiers: Hyperlipidemia type: mixed hyperlipidemia Qualified Code(s): E78.2 - Mixed hyperlipidemia (5) Elevated troponin Priority: Secondary Status: Acute (6) Ileus Priority: Secondary Status: Resolved (7) Constipation by delayed colonic transit Priority: Secondary Status: Resolved (8) AICD (automatic cardioverter/defibrillator) present Priority: Secondary Status: Acute Procedures/tests Complete & Pending: Procedures Performed prior 72 hours Category Date Time Status EV echocardiogram w enhance Routine Y 06/11/16 03:31 Completed Date of admission: 06/10/16 23:50 Primary care physician: [facility] Consults: 06/11/16 03:27 Consult to Cardiology [CONS] Routine Comment: Consulting Provider: Cardiology Perry Reason for Consult: ACUTE ON CHRONIC SYSTOLIC HEART FAILIURE Call Completed: No Hospital course: Mr. Winston is a 51 year old male - Time Spent with Patient Total time spent providing and/or coordinating discharge services: 36min - Constitutional Vitals: Temp Pulse Resp BP Pulse Ox 97.3 F L 83 16 89/66 93 L 06/13/16 11:43 06/13/16 11:43 06/13/16 11:43 06/13/16 11:43 06/13/16 11:43 - Attending Attestation I examined this patient and my medical decision-making was reviewed with the Resident Physician on 06/13/16. I agree with the documented findings, disposition and treatment plan as described except to the extent set forth below. Mr. Winston had issues with abdomen last evening. Xray had ileus. Had large BM today and improved. No CP. Dyspnea much better today. Exam Alert. Comfortable Heart reg Lungs diminished Plan D/C today Follow up with PCP Pt BP OK and he is afebrile. He is stable for d/c home.
[2016-06-13 11:50] VITALS: BP 89/66
== END 2016-06-13 14:10 | disposition home or self-care (01) | DRG 292 ==
LOC: EMEROO 22:18 → 2NENU 23:50
PROVIDERS: ADMIT Family Medicine; ATTEND Internal Medicine

== ENCOUNTER 2016-06-15 17:12 | Inpatient (IN) ==
--- NOTE | 2016-06-15 17:23 | Emergency Department Note ---
Disposition Clinical Impression: Small bowel obstruction, Hernia, Diabetes mellitus, Vomiting, Obesity, Congestive heart failure, HLD (hyperlipidemia) Disposition: Admitted As Inpatient [facility] Care Provider[facility] - Forms: Work/School Release, ED Satisfaction Letter General Adult HPI - General Chief complaint: ED Abdominal Pain Stated complaint: abdominal pain Time Seen by Provider: 06/15/16 17:23 Source: patient, EMS Limitations: no limitations - History of Present Illness HPI Narrative: 51-year-old male comes in via EMS from the [facility] where he was evaluated for abdominal pain and diagnosed with what appears to be a small bowel obstruction via CT scan. There is also a report of colon protruding through an abdominal wall hernia. The patient describes a few episodes of nonbloody emesis today. He began having abdominal pain yesterday. He was seen at the [facility] on Thursday and evaluated for CHF. He denies chest pain or shortness of breath at this time. The patient is not known to be anticoagulated. He states he had a history of testicular cancer and surgery involving his abdomen in 1988 but has had no abdominal surgery since then. He is known to be diabetic. There is no history of syncope, acute back pain, fever , or confusion. There is no history of trauma. The patient is concerned about abdominal pain, his providers at the [facility] had him sent to the ED for further evaluation. On review, the patient describes his abdominal hernia as being present for 27 years. He does not note a change in the color size or described pain directly in the area. Onset (ago): hour(s) Pain Scale: 5 - Related Data Home Medications Medication Instructions Recorded Confirmed Aspirin [Lo-Dose Aspirin EC] 81 mg PO DAILY 06/11/16 06/11/16 Atorvastatin [Lipitor] 40 mg PO DAILY 06/11/16 06/11/16 Bupropion HCl [Zyban] 150 mg PO DAILY 06/11/16 06/11/16 Cholecalciferol (D-3) [Vitamin D] 2,000 unit PO DAILY 06/11/16 06/11/16 Furosemide [Lasix] 40 mg PO DAILY 06/11/16 06/11/16 GlipiZIDE [Glucotrol] 5 mg PO BID 06/11/16 06/11/16 Lisinopril [Zestril] 10 mg PO DAILY 06/11/16 06/11/16 Metformin [Glucophage] 850 mg PO TID 06/11/16 06/11/16 Spironolactone [Aldactone] 25 mg PO DAILY 06/11/16 06/11/16 Testosterone [Androderm] 2 mg TD DAILY 06/11/16 06/11/16 Previous Rx's Medication Instructions Recorded Carvedilol [Coreg] 12.5 mg PO BIDWM #30 tablet 06/13/16 Allergies Allergy/AdvReac Type Severity Reaction Status Date / Time No Known Allergies Allergy Verified 06/10/16 22:20 All systems ED: reviewed and negative except as stated. Past Medical History - Past Medical History Medical history: Reports: CHF, diabetes, hyperlipidemia Surgical history: Reports: pacemaker/AICD Psychiatric history: Reports: depression - Social History Smoking Status: Never smoker Smokeless Tobacco Status: No Alcohol use: Reports: none Drug use: Reports: none Physical Exam - General Limitations: no limitations General appearance: alert, in no apparent distress - Head Head exam: atraumatic, normocephalic, normal inspection - Eye Eye exam: Present: normal appearance, PERRL, EOMI - ENT ENT exam: normal exam, normal oropharynx, mucous membranes moist - Neck Neck exam: Present: normal inspection, full ROM, trachea midline - Chest Chest inspection: Present: symmetric chest wall rise. Absent: tenderness - Respiratory Respiratory exam: Present: normal lung sounds bilaterally. Absent: respiratory distress - Cardiovascular Cardiovascular exam: Present: regular rate, normal rhythm, normal heart sounds - Abdominal Exam Abdominal exam: Present: soft, tenderness, distention, incision, hernia, other ( Soft bulging area in the anterior left upper abdomen which is not tender red or firm, the area does not seem consistent with an incarcerated hernia.). Absent: guarding, rebound, rigidity, pulsatile mass Abdominal tenderness: Present: diffuse - Extremities Exam Extremities exam: Present: normal inspection, full ROM, normal capillary refill. Absent: tenderness, pedal edema, joint swelling, calf tenderness - Expanded Lower Extremity Exam Lower leg exam: Absent: Homans' sign Neurovascular/Tendon exam: Absent: motor deficit, sensory deficit, tendon deficit - Back Exam Back exam: Present: normal inspection, full ROM. Absent: tenderness, CVA tenderness (R), CVA tenderness (L), vertebral tenderness - Neurological Exam Neurological exam: Present: alert, oriented X3, CN II-XII intact. Absent: motor sensory deficit - Psychiatric Psychiatric exam: Present: normal affect, normal mood - Skin Skin exam: Present: warm, dry, intact, normal color. Absent: rash, cyanosis, diaphoresis, erythema, pallor, mottled Course Vital Signs Temperature 97.5 F L 06/15/16 17:12 Pulse Rate 81 06/15/16 17:12 Respiratory Rate 18 06/15/16 17:12 Blood Pressure 103/72 06/15/16 17:12 O2 Sat by Pulse Oximetry 97 06/15/16 17:12 Temperature 97.5 F L 06/15/16 17:12 Pulse Rate 81 06/15/16 17:12 Respiratory Rate 18 06/15/16 17:12 Blood Pressure 103/72 06/15/16 17:12 O2 Sat by Pulse Oximetry 97 06/15/16 17:12 Oxygen Delivery Oxygen Delivery Room Air Medical Decision Making - MDM Narrative Medical decision making narrative: I reviewed the laboratory studies from the [facility] as well as a CT scan. The CT scan indicates colon protruding into the abdominal hernia, also a small bowel obstruction. An NG tube was ordered, cardiopulmonary testing was also ordered. The patient declines need for anything for pain. I suspect the patient's abdominal hernia is chronic in nature, he states he has no pain directly in the area and that the area appears to be unchanged in size or location in his opinion. On clinical examination the patient has no pain in the area and there is no firmness or non-reducibility, I do not necessarily suspect an incarcerated hernia. The patient has generalized mild abdominal tenderness on palpation without rebound rigidity or guarding. I reviewed the case with Dr. Magallon, surgeon salon manager who recommends an NG tube and medical admission. She will act as furniture sales consultant on the patient. The patient does not appear to be in overt heart failure, his blood sugars in the 160s. EKG BNP and troponin show no major abnormalities. IV access is present. Fluids were ordered. I reviewed the case with the hospitalist APC salon manager who has accepted the patient to their care. An NG tube has been ordered. - Lab Data Lab results reviewed: Yes I reviewed the patient's lab results. Lab Results 06/15/16 06/15/16 06/15/16 Range/Units 18:11 18:11 18:11 PT (9.4-12.1) Seconds INR APTT (26.0-36.0) Seconds Lactic Acid 1.2 (0.5-2.2) mmol/L Troponin I 0.03 (0-0.03) ng/mL B-Natriuretic Peptide 282 H (0-100) pg/mL 06/15/16 Range/Units 18:11 PT 14.2 H (9.4-12.1) Seconds INR 1.3 APTT 30.5 (26.0-36.0) Seconds Lactic Acid (0.5-2.2) mmol/L Troponin I (0-0.03) ng/mL B-Natriuretic Peptide (0-100) pg/mL - Radiology Data Radiology results reviewed: Yes I reviewed the patient's radiology results.
[2016-06-15] MEDS ORDERED: 0.9 % Sodium Chloride 1,000 ML IVC ONE (17:24)
[2016-06-15 18:22] LABS: INR 1.3; Prothrombin Time 14.2 Seconds (9.4-12.1)
[2016-06-15 18:24] LABS: Activated Partial Thrombo Time 30.5 Seconds (26.0-36.0)
[2016-06-15] MEDS ORDERED: 0.9 % Sodium Chloride 1,000 ML IVC SCH ×2 (21:30→22:08)
[2016-06-15] MEDS ORDERED: Lidocaine (Urojet) 10 ML JEL.PF.APP TP ONE (21:41)
--- NOTE | 2016-06-15 21:58 | Internal Med History&Physical ---
Date of Encounter: 06/15/16 Time of Encounter: 22:00 Assessment and Plan (1) Ileus Current visit: No Status: Resolved Patient complains of abdominal pain that varies from 0-8/10. No guarding or peritoneal signs noted. KUB showed mildly dilated small bowel with gas filled loops suggesting Ileus. NPO NG tube will be placed to wall suction. Serial Abdominal exams IVF at 75ml/hr. Monitor for signs of fluid overload-decrease IVF rate as necessary. ED note states that Dr. Magallon was notified before admission, who suggested NG tube, and she will see patient as consult- consult to surgery placed. (2) Congestive heart failure Current visit: Yes Status: Acute Last echo on 06/11/16 showed LVEF 20%, severely dilated left ventricle, global LV systolic dysfunction, indeterminate diastolic dysfunction Monitor for signs of fluid overload- diurese as needed Qualifiers: Congestive heart failure type: systolic Congestive heart failure chronicity : chronic Qualified Code(s): I50.22 - Chronic systolic (congestive) heart failure (3) Diabetes mellitus Current visit: Yes Status: Chronic Hold oral diabetes meds. NPO with Low dose sliding scale insulin, Q4HR accuchecks. Qualifiers: Diabetes mellitus type: type 2 Diabetes mellitus complication status: with unspecified complications Diabetes mellitus buttermaker insulin use: unspecified buttermaker insulin use status Qualified Code(s): E11.8 - Type 2 diabetes mellitus with unspecified complications (4) Obesity Current visit: Yes Status: Chronic Patient counseled on importance of weight loss and exercise to decrease mortality risk. Consult to staff development educator. Qualifiers: Obesity type: due to excess calories Obesity severity: unspecified obesity severity Qualified Code(s): E66.09 - Other obesity due to excess calories (5) HLD (hyperlipidemia) Current visit: Yes Status: Chronic Patient takes Lipitor and Statin at home- Med list not yet verified. Hold oral meds due to NG tube. Qualifiers: Hyperlipidemia type: unspecified Qualified Code(s): E78.5 - Hyperlipidemia , unspecified (6) DVT prophylaxis Current visit: No Status: Acute Heparin 5,000 units SQ Q8HR Internal Medicine - H&P: HPI Chief complaint: abdominal pain Admitted From: Home Plans for Post Hospital Care: Home History of present illness: Mr. Winston is a 51 year old male with PMHx of CHF (last echo on 06/11/16 showed LVEF 20%, severly dilated left ventricle, global LV systolic dysfunction, indeterminate diastolic dysfunction), HLD, DM2, Abdominal Hernia, Hx of testicular cancer (s/p right orchiectomy with lymph node dissection). The patient came tot he ED today with CC of abdominal pain that varies from 0-8/10. He states that this pain started on Thursday. He describes the pain as a dull pressure located mid abdomen and goes across his abdomen. He says the pain does not radiate to other parts of the body. Currently, his pain is a 2/10. His last bowel movement was this morning and it was formed stool. He denies hematochezia/ melena. He vomited about three times today, he describes it as non bloody emesis. He denies nausea. He denies history of ever having any colonoscopies. Family Hx: Mother has DM, DVT Hx, arthritis. Father at age 80 from old age. He had hx of throat cancer. He has two siblings that are alive and healthy. Social Hx: lives at home with his mother. He denies hx of smoking, alcohol, or illicit drug use. Past Med Surg Social Fam HX - Past Medical History Medical history: CHF, diabetes, hyperlipidemia Psychiatric history: depression - Past Surgical History Surgical History: pacemaker/AICD - Social History Smoking Status: Never smoker Smokeless Tobacco Status: No Alcohol use: none Drug use: none Internal Medicine - H&P: Meds Aspirin [Lo-Dose Aspirin EC] 81 mg PO DAILY 06/11/16 [History] Atorvastatin [Lipitor] 40 mg PO DAILY 06/11/16 [History] Bupropion HCl [Zyban] 150 mg PO DAILY 06/11/16 [History] Cholecalciferol (D-3) [Vitamin D] 2,000 unit PO DAILY 06/11/16 [History] Furosemide [Lasix] 40 mg PO DAILY 06/11/16 [History] GlipiZIDE [Glucotrol] 5 mg PO BID 06/11/16 [History] Lisinopril [Zestril] 10 mg PO DAILY 06/11/16 [History] Metformin [Glucophage] 850 mg PO TID 06/11/16 [History] Spironolactone [Aldactone] 25 mg PO DAILY 06/11/16 [History] Testosterone [Androderm] 2 mg TD DAILY 06/11/16 [History] Carvedilol [Coreg] 12.5 mg PO BIDWM #30 tablet 06/13/16 [Rx] Allergies No Known Allergies Allergy (Verified 06/10/16 22:20) All Systems PM: A 10-system review of systems was performed and is negative for pertinent findings except as documented above in the HPI. - Constitutional Constitutional: no chills, no fatigue, no fever(s), no falls - EENT Eyes: no blurry vision - Cardiovascular Cardiovascular ROS IM: no chest pain, no edema - Respiratory Respiratory: no cough - Gastrointestinal Gastrointestinal: abdominal pain, no change in stool character, no hematochezia , no melena - Constitutional Vitals: Temp Pulse Resp BP Pulse Ox 97.6 F 97 16 99/65 94 L 06/15/16 21:00 06/15/16 21:00 06/15/16 21:00 06/15/16 21:00 06/15/16 21:00 General appearance: Present: A&O X 3, no acute distress, obese, answers questions appropriately - Head Head exam: Present: atraumatic, normocephalic - Neck Neck exam general surgery: Present: supple, trachea midline - Respiratory Respiratory exam: Present: CTAB - Cardiovascular Cardiovascular exam: Present: RRR, +S1, +S2 - GI/Abdominal GI/Abdominal exam: Present: distended, hernia, normal bowel sounds, tenderness, no peritoneal signs. Absent: guarding Additional comments: mid abdominal hernia. Mid abdominal scar present from past surgery. - Extremities Exam Extremities exam: Absent: cyanotic, pedal edema - Neurological Exam Neurological exam: Present: alert, oriented X3, no focal deficits
[2016-06-15] MEDS ORDERED: Acetaminophen 325 MG TABLET PO PRN (22:18)
[2016-06-15] MEDS ORDERED: Naloxone 0.4 MG/ML INJ IVP PRN (22:18)
[2016-06-15] MEDS ORDERED: Ondansetron 4 MG/2 ML VIAL IVP PRN (22:18)
[2016-06-15] MEDS ORDERED: *HR* Dextrose 50 % in Water (Syg) 50 ML SYRINGE IVP PRN (22:24)
[2016-06-15] MEDS ORDERED: D5% in Water 1,000 ML IV PRN (22:24)
[2016-06-15] MEDS ORDERED: Dextrose Gel 15 GM PO PRN ×2 (22:24)
[2016-06-15 22:36] LABS: Basophils % 0.5 %; Eosinophils # 0.1 K/mcL (0.0-0.6); Eosinophils % 1.2 %; Hematocrit 42.5 % (37.5-50.1); Hemoglobin 14.1 g/dL (12.9-16.9); Immature Granulocytes % 0.2 % (0-4); Immature Platelets 4.6 % (1.1-6.1); Lymphocytes # 1.6 K/mcL (0.6-4.6); Lymphocytes % 23.5 %; Mean Corpuscular HGB Conc 33.2 g/dL (31.6-35.5); Mean Corpuscular Hemoglobin 29.4 pg (28.0-33.3); Mean Corpuscular Volume 88.5 fL (83.0-100.0); Monocytes % 14.5 %; Platelet Count 286 K/mcL (140-400); Red Cell Distribution Width 13.7 % (11.5-14.5); Segmented Neutrophils % 60.1 %
[2016-06-15 22:47] LABS: BUN/Creatinine Ratio 24 (6-26); Blood Urea Nitrogen 19 mg/dL (8-26); Calcium 9.2 mg/dL (8.6-10.8); Carbon Dioxide 24 mEq/L (19-29); Chloride 100 mEq/L (98-109); Glucose 144 mg/dL (70-99); Osmolality,Calculated 291 (280-300); Sodium 138 mEq/L (136-145); eGFR For African Americans > 60 (> 60); eGFR For Non-African Americans > 60 (> 60)
[2016-06-15] MEDS: *HR* Heparin 5,000 UNIT/ML VIAL SQ SCH (22:58)
[2016-06-15 23:05] LABS: Bilirubin,Urine Small (Negative); Blood,Urine Negative (Negative); Clarity,Urine Clear (Clear); Color,Urine Yellow (Yellow); Glucose,Urine (UA) Normal (Normal); Ketones,Urine Trace mg/dL (Negative); Leukocyte Esterase,Urine Negative (Negative); Nitrite,Urine Negative (Negative); PH,Urine 5.5 pH Units (5.0-8.0); Protein,Urine 100 mg/dL (Neg-Trace); Specific Gravity,Urine 1.025 (1.010-1.025)
[2016-06-15 23:16] LABS: Bacteria,Urine Few per hpf (None-Few); Squamous Epithelial Cell,Urine Few per lpf (None-Few)
[2016-06-16] MEDS: Insulin LISPRO 300 UNITS/3 ML VIAL SQ SCH ×6 (01:02→20:00)
[2016-06-16 04:41] LABS: Basophils % 0.5 %; Eosinophils # 0.1 K/mcL (0.0-0.6); Eosinophils % 1.5 %; Hematocrit 40.6 % (37.5-50.1); Hemoglobin 13.6 g/dL (12.9-16.9); Immature Granulocytes % 0.2 % (0-4); Lymphocytes # 1.6 K/mcL (0.6-4.6); Lymphocytes % 26.7 %; Mean Corpuscular HGB Conc 33.5 g/dL (31.6-35.5); Mean Corpuscular Hemoglobin 29.6 pg (28.0-33.3); Mean Corpuscular Volume 88.5 fL (83.0-100.0); Mean Platelet Volume 10.1 fL (9.4-12.4); Monocytes # 0.9 K/mcL (0.0-1.3); Monocytes % 15.1 %; Neutrophils # 3.4 K/mcL (1.6-8.9); Platelet Count 250 K/mcL (140-400); Red Blood Count 4.59 M/mcL (4.19-5.50); Red Cell Distribution Width 13.9 % (11.5-14.5)
[2016-06-16 04:58] LABS: BUN/Creatinine Ratio 23 (6-26); Blood Urea Nitrogen 18 mg/dL (8-26); Carbon Dioxide 23 mEq/L (19-29); Chloride 102 mEq/L (98-109); Glucose 141 mg/dL (70-99); Potassium 3.8 mEq/L (3.5-4.5); Sodium 139 mEq/L (136-145); eGFR For African Americans > 60 (> 60); eGFR For Non-African Americans > 60 (> 60)
[2016-06-16 04:59] LABS: Osmolality,Calculated 292 (280-300)
[2016-06-16] MEDS: *HR* Heparin 5,000 UNIT/ML VIAL SQ SCH ×3 (06:27→23:54)
--- NOTE | 2016-06-16 13:09 | General Surgery Consult Note ---
Date of Encounter: 06/16/16 Time of Encounter: 12:38 Assessment and Plan (1) Small bowel obstruction Current Visit: Yes Status: Acute (2) Congestive heart failure Current Visit: Yes Status: Acute Qualifiers: Congestive heart failure type: systolic Congestive heart failure chronicity : chronic Qualified Code(s): I50.22 - Chronic systolic (congestive) heart failure (3) Diabetes mellitus Current Visit: Yes Status: Chronic Qualifiers: Diabetes mellitus type: type 2 Diabetes mellitus complication status: with unspecified complications Diabetes mellitus nursing home insulin use: unspecified nursing home insulin use status Qualified Code(s): E11.8 - Type 2 diabetes mellitus with unspecified complications (4) HLD (hyperlipidemia) Current Visit: Yes Status: Chronic Qualifiers: Hyperlipidemia type: unspecified Qualified Code(s): E78.5 - Hyperlipidemia , unspecified (5) Obesity Current Visit: Yes Status: Chronic Qualifiers: Obesity type: due to excess calories Obesity severity: unspecified obesity severity Qualified Code(s): E66.09 - Other obesity due to excess calories Past Med Surg Social Fam HX - Past Medical History Medical history: CHF, diabetes, hyperlipidemia Psychiatric history: depression - Past Surgical History Surgical History: pacemaker/AICD - Social History Smoking Status: Never smoker Smokeless Tobacco Status: No Alcohol use: none Drug use: none Medications and Allergies Aspirin [Lo-Dose Aspirin EC] 81 mg PO DAILY 06/11/16 [History] Atorvastatin [Lipitor] 40 mg PO DAILY 06/11/16 [History] Bupropion HCl [Zyban] 150 mg PO DAILY 06/11/16 [History] Cholecalciferol (D-3) [Vitamin D] 2,000 unit PO DAILY 06/11/16 [History] Furosemide [Lasix] 40 mg PO DAILY 06/11/16 [History] GlipiZIDE [Glucotrol] 5 mg PO BID 06/11/16 [History] Lisinopril [Zestril] 10 mg PO DAILY 06/11/16 [History] Metformin [Glucophage] 850 mg PO TID 06/11/16 [History] Spironolactone [Aldactone] 25 mg PO DAILY 06/11/16 [History] Testosterone [Androderm] 2 mg TD DAILY 06/11/16 [History] Carvedilol [Coreg] 12.5 mg PO BIDWM #30 tablet 06/13/16 [Rx] Allergies No Known Allergies Allergy (Verified 06/10/16 22:20) Review of Systems All systems PM: A 10-system review of systems was performed and is negative for pertinent findings except as documented above in the HPI. General Surgery Exam Initial Vital Signs Temp Pulse Resp BP Pulse Ox 97.5 F L 81 18 103/72 97 06/15/16 17:12 06/15/16 17:12 06/15/16 17:12 06/15/16 17:12 06/15/16 17:12 Exam Initial Vital Signs Temp Pulse Resp BP Pulse Ox 97.5 F L 81 18 103/72 97 06/15/16 17:12 06/15/16 17:12 06/15/16 17:12 06/15/16 17:12 06/15/16 17:12 Results - Labs 06/16/16 04:12 06/16/16 04:12 Abnormal lab results PT 14.2 Seconds (9.4-12.1) H 06/15/16 18:11 Glucose 141 mg/dL (70-99) H 06/16/16 04:12 POC Glucose 136 (58-89) H 06/16/16 10:59 B-Natriuretic Peptide 282 pg/mL (0-100) H 06/15/16 18:11 Urine Protein 100 mg/dL (Neg-Trace) H 06/15/16 22:56 Urine Ketones Trace mg/dL (Negative) H 06/15/16 22:56 Urine Bilirubin Small (Negative) H 06/15/16 22:56 Urine Urobilinogen 4.0 mg/dL (Normal) H 06/15/16 22:56 Diabetes panel 06/15/16 06/16/16 Range/Units 22:29 04:12 Sodium 138 139 (136-145) mEq/L Potassium 4.0 3.8 (3.5-4.5) mEq/L Chloride 100 102 (98-109) mEq/L Carbon Dioxide 24 23 (19-29) mEq/L BUN 19 18 (8-26) mg/dL Creatinine 0.80 0.80 (0.72-1.25) mg/dL Glucose 144 H 141 H (70-99) mg/dL Calcium 9.2 9.0 (8.6-10.8) mg/dL Calcium panel 06/15/16 06/16/16 Range/Units 22:29 04:12 Calcium 9.2 9.0 (8.6-10.8) mg/dL Pituitary panel 06/15/16 06/16/16 Range/Units 22:29 04:12 Sodium 138 139 (136-145) mEq/L Potassium 4.0 3.8 (3.5-4.5) mEq/L Chloride 100 102 (98-109) mEq/L Carbon Dioxide 24 23 (19-29) mEq/L BUN 19 18 (8-26) mg/dL Creatinine 0.80 0.80 (0.72-1.25) mg/dL Glucose 144 H 141 H (70-99) mg/dL Calcium 9.2 9.0 (8.6-10.8) mg/dL Adrenal panel 06/15/16 06/16/16 Range/Units 22:29 04:12 Sodium 138 139 (136-145) mEq/L Potassium 4.0 3.8 (3.5-4.5) mEq/L Chloride 100 102 (98-109) mEq/L Carbon Dioxide 24 23 (19-29) mEq/L BUN 19 18 (8-26) mg/dL Creatinine 0.80 0.80 (0.72-1.25) mg/dL Glucose 144 H 141 H (70-99) mg/dL Calcium 9.2 9.0 (8.6-10.8) mg/dL All other labs normal. Consult Discharge Plan - Plan [facility]errals: [facility] [Primary Care Provider] -
--- NOTE | 2016-06-16 14:32 | Internal Med Progress Note ---
Date of Encounter: 06/16/16 Time of Encounter: 13:00 - Assessment and plan (1) Ileus Current Visit: No Status: Resolved Assessment and plan: Patient presented with a chief complaint of abdominal pain. 06/12: X-ray of the abdomen revealed mildly dilated small bowel well in the left lower quadrant with a distant normal caliber gas-filled loops of small bowel. Gas and stool are seen in the colon with gaseous distention of the proximal transverse colon. 06/15: X-ray of the abdomen is limited due to patient body habitus. Nonspecific bowel gas pattern. Patient with NG tube in place with suctioning of greenish secretions. His abdominal pain has improved and repeat abdominal x-ray shows improvement of ileus. No bowel movement. No flutters. Start Dulcolax rectally. (2) Systolic heart failure, chronic Current Visit: Yes Status: Chronic Assessment and plan: Patient with history of systolic heart failure with LVEF 20%, severely dilated left ventricle, globulin LV systolic dysfunction, indeterminate diastolic dysfunction. Last echocardiogram in June 11 2016. No signs of fluid overload at this time. Continue Lasix. Will resume Coreg and spironolactone when patient able to take oral medications. (3) DM (diabetes mellitus), type 2 Current Visit: No Status: Chronic Assessment and plan: controlled. Patient is nothing by mouth. Continue insulin sliding scale and NPO. patient takes at home metformin and glipizide. Qualifiers: Diabetes mellitus complication status: with hyperglycemia Diabetes mellitus senior living insulin use: without ferry terminal supervisor use Qualified Code(s): E11.65 - Type 2 diabetes mellitus with hyperglycemia (4) Morbid obesity with BMI of 45.0-49.9, adult Current Visit: Yes Status: Acute Assessment and plan: BMI 47.9. Outpatient weight loss program. - Subjective Interval history: Patient reports discomfort from NGT but understands the importance of it. he feels better than yesterday. - Constitutional Vitals: Temp Pulse Resp BP Pulse Ox 98.4 F 89 16 94/65 93 L 06/16/16 10:06/16/16 10:06/16/16 10:06/16/16 10:06/16/16 10:30 General appearance: Present: cooperative, A&O X 3, pleasant, no acute distress, obese, answers questions appropriately - Eye Eye exam: Present: PERRL, sclera anicteric - ENT Additional comments: NGT in place with greenish dark secretion in cannister. - Neck Neck exam general surgery: Present: supple, trachea midline. Absent: lymphadenopathy - Respiratory Respiratory exam: Present: CTAB. Absent: wheezes, tachypnea - Cardiovascular Cardiovascular exam: Present: RRR - GI/Abdominal GI/Abdominal exam: Present: hypoactive bowel sounds, soft, tenderness (mild diffuse tenderness). Absent: distended - Extremities Exam Extremities exam: Present: pedal edema - Neurological Exam Neurological exam: Present: alert, oriented X3. Absent: facial droop, speech deficit - Skin Skin exam: Present: dry (legs are swollen and show signs of chronic venous stasis changes) Internal Medicine: Result - Labs CBC & Chem 7: 06/16/16 04:12 06/16/16 04:12 - ABG Interpretation ABG results: PT/INR, D-dimer PT 14.2 Seconds (9.4-12.1) H 06/15/16 18:11 Consult Discharge Plan - Plan Referrals: [facility] [Primary Care Provider] -
[2016-06-16] MEDS ORDERED: 0.9 % Sodium Chloride 1,000 ML IVC SCH (14:45)
[2016-06-16] MEDS: Bisacodyl 10 MG RECTAL SUPPOSITORY RC SCH (14:52)
--- NOTE | 2016-06-16 16:11 | Electrocardiograph Report ---
[facility] Test Date: 2016-06-15 Pat Name: Ken Winston Department: 103 Room: 3A43 Gender: M Social Work Administrator: [facility] : 1965 Requested By: Orlin Corbett Order Number: [id number] Reading MD: Mary Rodriguez Measurements Intervals Ray Rate: 93 P: 47 TX: 181 QRS: -22 QRSD: 137 T: 113 QT: 388 QTc: 439 Interpretive Statements SINUS RHYTHM INTRAVENTRICULAR CONDUCTION DELAY LEFTWARD AXIS WITH POOR R WAVE PROGRESSION Electronically Signed On 06-16-16 16:08:57 EST by Mary Rodriguez
--- NOTE | 2016-06-16 16:14 | Electrocardiograph Report ---
[facility] Test Date: 2016-06-16 Pat Name: FLO LIU Department: 115 Room: 3A43 Gender: M Customs Officer: : 1965 Requested By: Brionna Mendez Order Number: [id number] Reading MD: Mary Rodriguez Measurements Intervals [place] Rate: 94 P: 59 ND: 182 QRS: -35 QRSD: 129 T: 81 QT: 393 QTc: 444 Interpretive Statements SINUS RHYTHM LEFT AXIS DEVIATION INTRAVENTRICULAR CONDUCTION DELAY Electronically Signed On 06-16-16 16:13:15 EST by Mary Rodriguez
--- NOTE | 2016-06-16 16:40 | General Surgery Consult Note ---
<Miriam Irvni - Last Filed: 06/16/16 16:58> Date of Encounter: 06/16/16 Time of Encounter: 16:00 Assessment and Plan (1) Small bowel obstruction Current Visit: Yes Status: Acute Check Acute abdominal series Bowel rest with NG tube to LIWS- 1350ml today IV fluids Supportive care and pain control Serial abdominal exams Surgery will continue to follow and assess progress Continue with conservative measures- no urgent surgical intervention indicated at this time (2) Hernia Current Visit: Yes Status: Chronic Stable Consider outpatient evaluation for repair of ventral/incisional hernia (3) Morbid obesity with BMI of 45.0-49.9, adult Current Visit: Yes Status: Chronic (4) HLD (hyperlipidemia) Current Visit: Yes Status: Chronic Qualifiers: Hyperlipidemia type: unspecified Qualified Code(s): E78.5 - Hyperlipidemia , unspecified (5) DM (diabetes mellitus), type 2 Current Visit: No Status: Chronic Stable Management per medicine service Qualifiers: Diabetes mellitus complication status: with hyperglycemia Diabetes mellitus marine oil terminal superintendent insulin use: without marine oil terminal superintendent use Qualified Code(s): E11.65 - Type 2 diabetes mellitus with hyperglycemia (6) DVT prophylaxis Current Visit: No Status: Acute Heparin 5,000 units SQ twice daily for DVT prophylaxis History of Present Illness Consult date: 06/15/16 Reason for consult: other (SBO) Requesting physician: Joselyn Yousif History of present illness: Mr. Winston is a 51 year old male who was transferred from the [facility] with SBO. He states that he starting having generalized abdominal pain on Thursday of last week. He states that the pain has progressively worsened and that he had significant central abdominal pain yesterday. He reports significant bloating with associated with associated nausea/vomiting. He states that he has had pains similar to this in the past but they have always resolved on their own. He does report that he has a large incisional hernia which had become enlarged. He denies any fevers/chills. Denies any difficulty with urination. He states that he has not been passing flatus or having bowel movement regularly. He did receive a suppository today and states that he is passing flatus and that he did have a bowel movement. His abdominal pain has now resolved. He states that his appetite is improving. He did have a CT which showed concerned for a SBO. He has been transferred to [place] or further work-up and treatment. We have been asked to see and evaluate the patient for recommendations. Past Med Surg Social Fam HX - Past Medical History Medical history: cancer (testicular), cardiomyopathy, CHF, diabetes, hyperlipidemia, myocardial infarction, other (morbid obesity, Vit. D deficiency , Fatty liver disease, NATHALY, large ventral/incisional hernia) Psychiatric history: anxiety, depression - Past Surgical History Surgical History: pacemaker/AICD, other (orchidectomy and lymph node removal) - Social History Smoking Status: Never smoker Smokeless Tobacco Status: No Alcohol use: none Drug use: none Current living situation: Home - Independent Activity Level: Independent ambulation Medications and Allergies Aspirin [Lo-Dose Aspirin EC] 325 mg PO DAILY 06/11/16 [History] Atorvastatin [Lipitor] 40 mg PO DAILY 06/11/16 [History] Bupropion HCl [Zyban] 150 mg PO DAILY 06/11/16 [History] Cholecalciferol (D-3) [Vitamin D] 2,000 unit PO DAILY 06/11/16 [History] Furosemide [Lasix] 40 mg PO DAILY 06/11/16 [History] GlipiZIDE [Glucotrol] 5 mg PO BID 06/11/16 [History] Metformin [Glucophage] 850 mg PO TID 06/11/16 [History] Spironolactone [Aldactone] 25 mg PO DAILY 06/11/16 [History] Testosterone [Androderm] 2 mg TD DAILY 06/11/16 [History] Carvedilol [Coreg] 6.25 mg PO BID 06/16/16 [History] Allergies No Known Allergies Allergy (Verified 06/10/16 22:20) Review of Systems All systems PM: reviewed and no additional remarkable complaints except as stated (in the HPI) All systems PM: A 10-system review of systems was performed and is negative for pertinent findings except as documented above in the HPI. General Surgery Exam Initial Vital Signs Temp Pulse Resp BP Pulse Ox 97.5 F L 81 18 103/72 97 06/15/16 17:12 06/15/16 17:12 06/15/16 17:12 06/15/16 17:12 06/15/16 17:12 - General physical appearance well developed, well nourished, no distress, no pain, obese - Eyes normal ocular movement - ENT normal mucosa, atraumatic, normocephalic - Neck trachea midline - Respiratory normal respiratory effort, clear to auscultation - Cardiovascular Cardiovascular exam: Present: RRR - Abdomen Abdomen general surgery: Present: bowel sounds present, soft, non tender, wound (NG tube to LIWS) Hernia: Present: reducible, incisional - Integumentary Integumentary general surgery: Present: warm and dry - Neurologic Present: CN 2-12 grossly intact - Musculoskeletal Present: normal gait, normal posture - Psychiatric Psychiatric general surgery: Present: appropriate, oriented to person, oriented to place, oriented to time, speech is normal, memory intact Exam Initial Vital Signs Temp Pulse Resp BP Pulse Ox 97.5 F L 81 18 103/72 97 06/15/16 17:12 06/15/16 17:12 06/15/16 17:12 06/15/16 17:12 06/15/16 17:12 Results - Labs 06/16/16 04:12 06/16/16 04:12 Abnormal lab results PT 14.2 Seconds (9.4-12.1) H 06/15/16 18:11 Glucose 141 mg/dL (70-99) H 06/16/16 04:12 POC Glucose 133 (58-89) H 06/16/16 15:32 B-Natriuretic Peptide 282 pg/mL (0-100) H 06/15/16 18:11 Urine Protein 100 mg/dL (Neg-Trace) H 06/15/16 22:56 Urine Ketones Trace mg/dL (Negative) H 06/15/16 22:56 Urine Bilirubin Small (Negative) H 06/15/16 22:56 Urine Urobilinogen 4.0 mg/dL (Normal) H 06/15/16 22:56 All other labs normal. - Imaging Additional studies: Chest X-Ray 06/15/16 17:30 IMPRESSION: Enlarged cardiac silhouette and mild pulmonary vascular congestion. D/ / Manny Lopez MD / Manny Lopez MD Interpreting Provider: Manny Lopez MD X-Ray 06/16/16 01:35 IMPRESSION: 1. Limited exam. 2. An enteric tube is seen coursing below the diaphragm with the tip not included on this exam. The side-port questionably in the region of the gastric fundus. D/ / Issa Andrew MD / Issa Andrew MD Interpreting Provider: Issa Andrew MD Consult Discharge Plan - Plan [facility]errals: [facility] [Primary Care Provider] - - Attending Attestation I examined this patient and my medical decision-making was reviewed with the INSOLE PRESSER/PA/Advanced Practice Nurse/Resident Physician. I agree with the documented findings, disposition and treatment plan as described except to the extent set forth below. <Sheyla Magallon - Last Filed: 06/16/16 17:32> Date of Encounter: 06/16/16 Assessment and Plan (1) Incisional hernia Current Visit: Yes Status: Acute patients upper abodminal incisional hernia although may be incarcerated is not the site of obstruction, the area is soft and nontender without overlying skin chagnes Qualifiers: Obstruction and gangrene presence: without obstruction or gangrene Qualified Code(s): K43.2 - Incisional hernia without obstruction or gangrene (2) Small bowel obstruction Current Visit: Yes Status: Acute History of Present Illness History of present illness: Patient is 51 yo male 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 He has a hernia at this site of the upper abdomen which contains transverse colon and small bowel but the area doesnt hurt and is never firm. He started having generalized abdominal pain yesterday which was sharp. He was also having nausea and emesis. He has since admission had a bowel movement x 2 which he states was normal consistency, denies diarrhea. Currently he is pain free and without any further nausea since the ngt was placed last night Past Med Surg Social Fam HX - Past Medical History Source: patient Medical history: cancer Review of Systems All systems PM: reviewed and no additional remarkable complaints except as stated All systems PM: A 10-system review of systems was performed and is negative for pertinent findings except as documented above in the HPI. General Surgery Exam Initial Vital Signs Temp Pulse Resp BP Pulse Ox 97.5 F L 81 18 103/72 97 06/15/16 17:12 06/15/16 17:12 06/15/16 17:12 06/15/16 17:12 06/15/16 17:12 - General physical appearance well developed, well nourished, no distress, no pain, obese - Eyes PERRL, normal ocular movement - ENT normal mucosa, normocephalic - Neck trachea midline - Respiratory normal expansion, clear to auscultation - Cardiovascular Cardiovascular exam: Present: RRR - Abdomen Abdomen general surgery: Present: bowel sounds present, soft, non tender Hernia: Present: reducible, incisional (upper abdomen) - Integumentary Integumentary general surgery: Present: warm and dry, no abnormal pigmentation - Neurologic Present: CN 2-12 grossly intact - Musculoskeletal Present: normal posture - Psychiatric Psychiatric general surgery: Present: A&Ox3, speech is normal Exam Initial Vital Signs Temp Pulse Resp BP Pulse Ox 97.5 F L 81 18 103/72 97 06/15/16 17:12 06/15/16 17:12 06/15/16 17:12 06/15/16 17:12 06/15/16 17:12 Results - Labs 06/16/16 04:12 06/16/16 04:12 Abnormal lab results PT 14.2 Seconds (9.4-12.1) H 06/15/16 18:11 Glucose 141 mg/dL (70-99) H 06/16/16 04:12 POC Glucose 133 (58-89) H 06/16/16 15:32 B-Natriuretic Peptide 282 pg/mL (0-100) H 06/15/16 18:11 Urine Protein 100 mg/dL (Neg-Trace) H 06/15/16 22:56 Urine Ketones Trace mg/dL (Negative) H 06/15/16 22:56 Urine Bilirubin Small (Negative) H 06/15/16 22:56 Urine Urobilinogen 4.0 mg/dL (Normal) H 06/15/16 22:56 All other labs normal. - Imaging CT scan - abdomen: report reviewed, image reviewed CT scan - pelvis: report reviewed, image reviewed
[2016-06-16] MEDS ORDERED: Furosemide 20 MG/2 ML VIAL IVP ONE (17:00)
[2016-06-16] MEDS ORDERED: Magnesium Sulfate 1 GM in D5% in Water 100 ML IVPB ONE (18:00)
[2016-06-17] MEDS: Insulin LISPRO 300 UNITS/3 ML VIAL SQ SCH ×5 (03:45→16:55)
[2016-06-17 04:55] LABS: Basophils % 0.7 %; Eosinophils # 0.2 K/mcL (0.0-0.6); Eosinophils % 3.3 %; Hematocrit 42.3 % (37.5-50.1); Hemoglobin 14.2 g/dL (12.9-16.9); Immature Granulocytes % 0.2 % (0-4); Lymphocytes # 1.4 K/mcL (0.6-4.6); Lymphocytes % 23.6 %; Mean Corpuscular HGB Conc 33.6 g/dL (31.6-35.5); Mean Corpuscular Hemoglobin 29.8 pg (28.0-33.3); Mean Corpuscular Volume 88.9 fL (83.0-100.0); Mean Platelet Volume 10.2 fL (9.4-12.4); Monocytes # 0.7 K/mcL (0.0-1.3); Monocytes % 11.8 %; Neutrophils # 3.5 K/mcL (1.6-8.9); Platelet Count 238 K/mcL (140-400); Red Blood Count 4.76 M/mcL (4.19-5.50); Red Cell Distribution Width 13.7 % (11.5-14.5); Segmented Neutrophils % 60.4 %
[2016-06-17 05:13] LABS: BUN/Creatinine Ratio 23 (6-26); Blood Urea Nitrogen 18 mg/dL (8-26); Calcium 9.4 mg/dL (8.6-10.8); Carbon Dioxide 27 mEq/L (19-29); Chloride 100 mEq/L (98-109); Glucose 126 mg/dL (70-99); Magnesium 2.2 mg/dL (1.6-2.6); Osmolality,Calculated 297 (280-300); Potassium 2.9 mEq/L (3.5-4.5); Sodium 142 mEq/L (136-145); eGFR For African Americans > 60 (> 60); eGFR For Non-African Americans > 60 (> 60)
[2016-06-17] MEDS: *HR* Heparin 5,000 UNIT/ML VIAL SQ SCH ×3 (06:20→22:08)
[2016-06-17] MEDS: Bisacodyl 10 MG RECTAL SUPPOSITORY RC SCH (07:21)
[2016-06-17] MEDS: D5% in 0.45% NACL w KCl 10 MEQ/1,000 ML MLS IVC SCH (08:26)
[2016-06-17] MEDS: Potassium Chloride 40 MEQ, Lidocaine 1% 2 ML in D5% in Water 500 ML IVPB SCH ×2 (08:27→13:39)
--- NOTE | 2016-06-17 10:02 | General Surgery Progress Note ---
<Michael Perez - Last Filed: 06/17/16 11:23> Date of Encounter: 06/17/16 Time of Encounter: 08:50 - Assessment and Plan (1) Small bowel obstruction Current Visit: Yes Status: Acute Acute abdominal series, reduced gas on imaging. Removed NG today. Advanced to clears IV fluids Supportive care and pain control Serial abdominal exams Surgery will continue to follow and assess progress Continue with conservative measures- no urgent surgical intervention indicated at this time (2) Hernia Current Visit: Yes Status: Chronic Stable, Consider outpatient evaluation for repair of ventral/incisional hernia. (3) Morbid obesity with BMI of 45.0-49.9, adult Current Visit: Yes Status: Chronic Referral to Bariatrics at discharge. (4) HLD (hyperlipidemia) Current Visit: Yes Status: Chronic Qualifiers: Hyperlipidemia type: unspecified Qualified Code(s): E78.5 - Hyperlipidemia , unspecified (5) DM (diabetes mellitus), type 2 Current Visit: No Status: Chronic Stable, management per medicine service. Qualifiers: Diabetes mellitus complication status: with hyperglycemia Diabetes mellitus long term care phlebotomist insulin use: without fci use Qualified Code(s): E11.65 - Type 2 diabetes mellitus with hyperglycemia (6) DVT prophylaxis Current Visit: No Status: Acute Heparin 5,000 units SQ twice daily for DVT prophylaxis. Subjective Patient reports: no new complaints, feels better, still having pain, pain is less, flatus, bowel movement, afebrile Objective Vital Signs - Last 8 Hours Temp Pulse Resp BP Pulse Ox 06/17/16 07:25 98.6 F 91 18 122/82 93 L 06/17/16 03:42 98.3 F 88 20 112/78 91 L Intake and Output 06/16/16 06/17/16 06/17/16 23:59 07:59 15:59 Intake Total 265 / 265 0 / 0 0 / 0 Output Total 800 / 800 800 / 800 300 / 300 Balance -535 / -535 -800 / -800 -300 / -300 Intake: IV Fluids 265 / 265 0.9 % Sodium Chloride 1, 163 / 163 000 ML @ 50 mls/hr IVC . Q20H JAXON Rx#:[id number] Magnesium Sulfate 1 GM In 102 / 102 Dextrose 5% 100 ML @ 100 mls/hr IVPB ONCE ONE Rx# :[id number] Oral 0 / 0 0 / 0 0 / 0 Output: Urine 300 / 300 Gastric Drainage 800 / 800 800 / 800 Right Nare 800 / 800 Other: Meal NPO NPO Stool Size Large Moderate Stool Consistency soft soft formed Stool Color Brown Brown # Voids 1 Blood Glucose* 132 115 - General physical appearance well developed, well nourished, no distress, obese - Eyes normal ocular movement - ENT normal mucosa, atraumatic, normocephalic - Neck Neck exam: trachea midline - Respiratory normal respiratory effort, clear to auscultation - Cardiovascular Cardiovascular exam: Present: tachycardia - Abdomen Abdomen: Present: soft, non tender, distended, wound (NG to LIWS (2000ml in past 24 hrs)). Absent: bowel sounds present - Labs 06/17/16 04:30 06/17/16 04:30 Diabetes panel 06/17/16 Range/Units 04:30 Sodium 142 (136-145) mEq/L Potassium 2.9 L (3.5-4.5) mEq/L Chloride 100 (98-109) mEq/L Carbon Dioxide 27 (19-29) mEq/L BUN 18 (8-26) mg/dL Creatinine 0.80 (0.72-1.25) mg/dL Glucose 126 H (70-99) mg/dL Calcium 9.4 (8.6-10.8) mg/dL Calcium panel 06/17/16 Range/Units 04:30 Calcium 9.4 (8.6-10.8) mg/dL Phosphorus 3.0 (2.3-4.7) mg/dL Pituitary panel 06/17/16 Range/Units 04:30 Sodium 142 (136-145) mEq/L Potassium 2.9 L (3.5-4.5) mEq/L Chloride 100 (98-109) mEq/L Carbon Dioxide 27 (19-29) mEq/L BUN 18 (8-26) mg/dL Creatinine 0.80 (0.72-1.25) mg/dL Glucose 126 H (70-99) mg/dL Calcium 9.4 (8.6-10.8) mg/dL Adrenal panel 06/17/16 Range/Units 04:30 Sodium 142 (136-145) mEq/L Potassium 2.9 L (3.5-4.5) mEq/L Chloride 100 (98-109) mEq/L Carbon Dioxide 27 (19-29) mEq/L BUN 18 (8-26) mg/dL Creatinine 0.80 (0.72-1.25) mg/dL Glucose 126 H (70-99) mg/dL Calcium 9.4 (8.6-10.8) mg/dL Consult Discharge Plan - Plan [facility]errals: [facility] [Primary Care Provider] - <Sheyla Magallon - Last Filed: 06/17/16 11:33> Date of Encounter: 06/17/16 Time of Encounter: 11:00 - Assessment and Plan (1) Incisional hernia Current Visit: Yes Status: Acute would not recommend fixing incisional hernia until pt lost a significant amount of weight discussed bariatric surgery with him - gastric sleeve, will see if [facility] can get [facility] Qualifiers: Obstruction and gangrene presence: without obstruction or gangrene Qualified Code(s): K43.2 - Incisional hernia without obstruction or gangrene (2) Small bowel obstruction Current Visit: Yes Status: Acute passing flatus and having bms ngt removed and clears started, will follow Subjective Patient reports: no new complaints, feels better Narrative: denies abdominal pain no nausea has bm and passing flatus Objective Vital Signs - Last 8 Hours Temp Pulse Resp BP Pulse Ox 06/17/16 11:16 97.9 F 93 17 114/79 90 L 06/17/16 10:51 93 L 06/17/16 07:25 98.6 F 91 18 122/82 93 L 06/17/16 03:42 98.3 F 88 20 112/78 91 L Intake and Output 06/16/16 06/17/16 06/17/16 23:59 07:59 15:59 Intake Total 265 / 265 0 / 0 0 / 0 Output Total 800 / 800 800 / 800 300 / 300 Balance -535 / -535 -800 / -800 -300 / -300 Intake: IV Fluids 265 / 265 0.9 % Sodium Chloride 1, 163 / 163 000 ML @ 50 mls/hr IVC . Q20H [facility] Rx#:[id number] Magnesium Sulfate 1 GM In 102 / 102 Dextrose 5% 100 ML @ 100 mls/hr IVPB ONCE ONE Rx# :[id number] Oral 0 / 0 0 / 0 0 / 0 Output: Urine 300 / 300 Gastric Drainage 800 / 800 800 / 800 Right Nare 800 / 800 Other: Meal NPO NPO Stool Size Large Moderate Stool Consistency soft soft formed Stool Color Brown Brown # Voids 1 Blood Glucose* 132 115 - General physical appearance well developed, well nourished, no distress, obese - Eyes PERRL, normal ocular movement - ENT normal mucosa, normocephalic - Neck Neck exam: trachea midline - Respiratory normal expansion, clear to auscultation - Cardiovascular Cardiovascular exam: Present: tachycardia - Abdomen Abdomen: Present: soft, non tender Hernia: incisional - Integumentary no rash, no growths - Neurologic CN 2-12 grossly intact - Musculoskeletal normal posture - Psychiatric oriented to time, memory intact - Labs 06/17/16 04:30 06/17/16 04:30 Diabetes panel 06/17/16 Range/Units 04:30 Sodium 142 (136-145) mEq/L Potassium 2.9 L (3.5-4.5) mEq/L Chloride 100 (98-109) mEq/L Carbon Dioxide 27 (19-29) mEq/L BUN 18 (8-26) mg/dL Creatinine 0.80 (0.72-1.25) mg/dL Glucose 126 H (70-99) mg/dL Calcium 9.4 (8.6-10.8) mg/dL Calcium panel 06/17/16 Range/Units 04:30 Calcium 9.4 (8.6-10.8) mg/dL Phosphorus 3.0 (2.3-4.7) mg/dL Pituitary panel 06/17/16 Range/Units 04:30 Sodium 142 (136-145) mEq/L Potassium 2.9 L (3.5-4.5) mEq/L Chloride 100 (98-109) mEq/L Carbon Dioxide 27 (19-29) mEq/L BUN 18 (8-26) mg/dL Creatinine 0.80 (0.72-1.25) mg/dL Glucose 126 H (70-99) mg/dL Calcium 9.4 (8.6-10.8) mg/dL Adrenal panel 06/17/16 Range/Units 04:30 Sodium 142 (136-145) mEq/L Potassium 2.9 L (3.5-4.5) mEq/L Chloride 100 (98-109) mEq/L Carbon Dioxide 27 (19-29) mEq/L BUN 18 (8-26) mg/dL Creatinine 0.80 (0.72-1.25) mg/dL Glucose 126 H (70-99) mg/dL Calcium 9.4 (8.6-10.8) mg/dL - Attending Attestation I examined this patient and my medical decision-making was reviewed with the ADJUSTMENT EXAMINER/PA/Advanced Practice Nurse/Resident Physician. I agree with the documented findings, disposition and treatment plan as described except to the extent set forth below.
--- NOTE | 2016-06-17 11:00 | Internal Med Progress Note ---
<Kevin Kaur - Last Filed: 06/17/16 14:05> Date of Encounter: 06/17/16 Time of Encounter: 14:05 - Assessment and plan (1) Small bowel obstruction Current Visit: Yes Status: Acute Assessment and plan: Acute abd series showed decreased gas through the bowel, pt had three bowel movement last night, feeling much better today, change to clear liquid diet, if con't to show improvement, likely d/c tmw. (2) DM (diabetes mellitus), type 2 Current Visit: No Status: Chronic Assessment and plan: Con't SSI Qualifiers: Diabetes mellitus complication status: with hyperglycemia Diabetes mellitus fdc insulin use: without fdc use Qualified Code(s): E11.65 - Type 2 diabetes mellitus with hyperglycemia (3) Hypokalemia Current Visit: Yes Status: Acute Assessment and plan: Will replace it today, mag is normal. (4) Ileus Current Visit: No Status: Resolved Assessment and plan: Pt had bowel movement three times last night, abd pain improved, will change to clear liquid diet. (5) DVT prophylaxis Current Visit: No Status: Acute Assessment and plan: Heparin SQ. - Subjective Interval history: Pt seen and examined, pt had three bowel movement last night, eating okay this AM. - Constitutional Vitals: Temp Pulse Resp BP Pulse Ox 98.6 F 91 18 122/82 93 L 06/17/16 07:25 06/17/16 07:25 06/17/16 07:25 06/17/16 07:25 06/17/16 10:51 General appearance: Present: cooperative, A&O X 3, pleasant, no acute distress, obese, answers questions appropriately - Head Head exam: Present: atraumatic, normocephalic - Eye Eye exam: Present: PERRL, conjuntiva pink, sclera anicteric Pupils: Present: PERRL - Neck Neck exam general surgery: Present: supple, trachea midline. Absent: lymphadenopathy - Respiratory Respiratory exam: Present: CTAB. Absent: accessory muscle use, rales, rhonchi, wheezes - Cardiovascular Cardiovascular exam: Present: RRR, +S1, +S2. Absent: diastolic murmur, gallop, rubs, systolic murmur - GI/Abdominal GI/Abdominal exam: Present: normal bowel sounds, soft, no peritoneal signs. Absent: distended, tenderness - Extremities Exam Extremities exam: Present: warm, radial pulses palpable and symetrical. Absent : calf tenderness, cyanotic, pedal edema - Neurological Exam Neurological exam: Present: CN II-XII intact, oriented X3, no focal deficits. Absent: pronater drift, facial droop, speech deficit - Skin Skin exam: Present: dry, intact Internal Medicine: Result - Labs CBC & Chem 7: 06/17/16 04:30 06/17/16 04:30 Labs: Short CBC 06/17/16 Range/Units 04:30 WBC 5.8 (4.3-11.1) K/mcL Hgb 14.2 (12.9-16.9) g/dL Hct 42.3 (37.5-50.1) % Plt Count 238 (140-400) K/mcL Neutrophils # 3.5 (1.6-8.9) K/mcL BMP 06/17/16 04:30 Sodium 142 Potassium 2.9 L Chloride 100 Carbon Dioxide 27 BUN 18 Creatinine 0.80 Glucose 126 H Calcium 9.4 - ABG Interpretation ABG results: PT/INR, D-dimer PT 14.2 Seconds (9.4-12.1) H 06/15/16 18:11 - Impressions Impressions Chest/Abdomen X-ray 06/17/16 09:08 IMPRESSION: Decreased gas throughout the bowel on the current study. The loops of small and large bowel which do show gas demonstrate decreased caliber. D/ / Samia Mcmanus Cha, MD / Samia Mcmanus Cha, MD Interpreting Provider: Samia Mcmanus Cha, MD Consult Discharge Plan - Plan Referrals: [facility] [Primary Care Provider] - <Santana Roa - Last Filed: 06/17/16 17:47> Date of Encounter: 06/17/16 - Constitutional Vitals: Temp Pulse Resp BP Pulse Ox 97.7 F 99 17 107/74 94 L 06/17/16 15:00 06/17/16 15:00 06/17/16 15:00 06/17/16 15:00 06/17/16 15:12 Internal Medicine: Result - Labs CBC & Chem 7: 06/17/16 04:30 06/17/16 04:30 Labs: Short CBC 06/17/16 Range/Units 04:30 WBC 5.8 (4.3-11.1) K/mcL Hgb 14.2 (12.9-16.9) g/dL Hct 42.3 (37.5-50.1) % Plt Count 238 (140-400) K/mcL Neutrophils # 3.5 (1.6-8.9) K/mcL BMP 06/17/16 04:30 Sodium 142 Potassium 2.9 L Chloride 100 Carbon Dioxide 27 BUN 18 Creatinine 0.80 Glucose 126 H Calcium 9.4 - ABG Interpretation ABG results: PT/INR, D-dimer PT 14.2 Seconds (9.4-12.1) H 06/15/16 18:11 - Impressions Impressions Chest/Abdomen X-ray 06/17/16 09:08 IMPRESSION: Decreased gas throughout the bowel on the current study. The loops of small and large bowel which do show gas demonstrate decreased caliber. D/ / Samia Mcmanus Cha, MD / Samia Mcmanus Cha, MD Interpreting Provider: Samia Mcmanus Cha, MD - Attending Attestation Mr. Winston was seen and examined in rounds today. I agree with the physical examination findings, assessment and plan as documented by the resident Dr. Kevin Kaur. Patient with small bowel obstruction, nasogastric tube has been removed. Hypokalemia noted, we will supplement potassium via IV. Monitor electrolytes tomorrow in a.m. Continue current management. Discussed with the patient in detail, he expressed understanding.
[2016-06-17] MEDS ORDERED: Insulin LISPRO 300 UNITS/3 ML VIAL SQ SCH ×2 (21:00)
[2016-06-18] MEDS: D5% in 0.45% NACL w KCl 10 MEQ/1,000 ML MLS IVC SCH ×2 (02:05→02:08)
[2016-06-18] MEDS: *HR* Heparin 5,000 UNIT/ML VIAL SQ SCH (06:03)
[2016-06-18] MEDS: Insulin LISPRO 300 UNITS/3 ML VIAL SQ SCH ×2 (08:16→12:49)
[2016-06-18] MEDS: Bisacodyl 10 MG RECTAL SUPPOSITORY RC SCH (09:42)
--- NOTE | 2016-06-18 10:07 | General Surgery Progress Note ---
<Michael Perez - Last Filed: 06/18/16 11:34> Date of Encounter: 06/18/16 Time of Encounter: 08:20 - Assessment and Plan (1) Small bowel obstruction Current Visit: Yes Status: Acute Acute abdominal series 06/17/16, reduced gas on imaging. Tolerating clears, advancing to full liquids. Patient states he feels comfortable to go home. Supportive care and pain control Surgery will sign off at this time, thank you for involving us in this patient' s care. Please feel free to contact us with any questions. (2) Hernia Current Visit: Yes Status: Chronic Would not recommend fixing incisional hernia until patient has lost a significant amount of weight. (3) Morbid obesity with BMI of 45.0-49.9, adult Current Visit: Yes Status: Chronic Dr. Magallon discussed bariatric surgery with patient on 06/17/16- gastric sleeve. Will see if [facility] can get [facility] (4) HLD (hyperlipidemia) Current Visit: Yes Status: Chronic Qualifiers: Hyperlipidemia type: unspecified Qualified Code(s): E78.5 - Hyperlipidemia , unspecified (5) DM (diabetes mellitus), type 2 Current Visit: No Status: Chronic Stable, management per medicine service. Qualifiers: Diabetes mellitus complication status: with hyperglycemia Diabetes mellitus jail insulin use: without long winder tender use Qualified Code(s): E11.65 - Type 2 diabetes mellitus with hyperglycemia (6) DVT prophylaxis Current Visit: No Status: Acute Heparin 5,000 units SQ twice daily for DVT prophylaxis. Subjective Patient reports: no new complaints, feels better, pain is less, tolerating liquids well, flatus, no bowel movement (3 BM yesterday, none yet today), afebrile Objective Vital Signs - Last 8 Hours Temp Pulse Resp BP Pulse Ox 06/18/16 06:52 98.2 F 84 18 112/78 94 L 06/18/16 03:46 97.9 F 76 18 114/76 90 L Intake and Output 06/17/16 06/18/16 06/18/16 23:59 07:59 15:59 Intake Total 1122 / 1122 1000 / 1000 900 / 900 Output Total 0 / 0 0 / 0 Balance 1122 / 1122 1000 / 1000 900 / 900 Intake: IV Fluids 522 / 522 1000 / 1000 900 / 900 KCl 10mEq in D5-0.45 NaCl 0 / 0 1000 / 1000 900 / 900 10 meq In 1,000 ml @ 125 mls/hr IVC .Q8H JAXON Rx#: [id number] KCl 40 MEQ Xylocaine 2 ML 522 / 522 In Dextrose 5% 500 ML @ 130.5 mls/hr IVPB Q4H JAXON Rx#:[id number] Oral 600 / 600 0 / 0 Output: Urine 0 / 0 0 / 0 Other: Meal Dinner # Voids 1 Blood Glucose* 128 128 - General physical appearance well developed, well nourished, no distress, obese - Eyes normal ocular movement - ENT normal mucosa, atraumatic, normocephalic - Neck Neck exam: trachea midline - Respiratory normal respiratory effort, clear to auscultation - Cardiovascular Cardiovascular exam: Present: tachycardia - Abdomen Abdomen: Present: soft, non tender Hernia: incisional - Integumentary no rash - Neurologic CN 2-12 grossly intact - Musculoskeletal normal posture - Psychiatric oriented to time, oriented to person, oriented to place, speech is normal, memory intact - Labs 06/17/16 04:30 06/18/16 05:17 Diabetes panel 06/18/16 Range/Units 05:17 Potassium 2.9 L (3.5-4.5) mEq/L Pituitary panel 06/18/16 Range/Units 05:17 Potassium 2.9 L (3.5-4.5) mEq/L Adrenal panel 06/18/16 Range/Units 05:17 Potassium 2.9 L (3.5-4.5) mEq/L Consult Discharge Plan - Plan [facility]errals: [facility] [Primary Care Provider] - <Sheyla Magallon - Last Filed: 06/18/16 11:45> Date of Encounter: 06/18/16 Time of Encounter: 11:10 - Assessment and Plan (1) Incisional hernia Current Visit: Yes Status: Acute discussed with patient that due to his obesity I would not consider him a surgical candidate for hernia repair until he lost weight. We discussed bariatric surgery and possible sleeve gastrectomy and he would like to be referred to bariatrics. I have asked my office to get ahold of his [facility] provider and relay the information. Qualifiers: Qualified Code(s): K43.2 - Incisional hernia without obstruction or gangrene (2) Small bowel obstruction Current Visit: Yes Status: Acute bowel obstruction resolved. tolerating clears, passing flatus and having bm's no further abdominal pain general surgery advancing diet and signing off, please call if needed again Subjective Narrative: no further abdominal pain, passing flatus and several bm's yesterday tolerating clears Objective Vital Signs - Last 8 Hours Temp Pulse Resp BP Pulse Ox 06/18/16 10:00 97.9 F 104 18 122/83 93 L 06/18/16 06:52 98.2 F 84 18 112/78 94 L 06/18/16 03:46 97.9 F 76 18 114/76 90 L Intake and Output 06/17/16 06/18/16 06/18/16 23:59 07:59 15:59 Intake Total 1122 / 1122 1000 / 1000 1260 / 1260 Output Total 0 / 0 0 / 0 Balance 1122 / 1122 1000 / 1000 1260 / 1260 Intake: IV Fluids 522 / 522 1000 / 1000 900 / 900 KCl 10mEq in D5-0.45 NaCl 0 / 0 1000 / 1000 900 / 900 10 meq In 1,000 ml @ 125 mls/hr IVC .Q8H JAXON Rx#: [id number] KCl 40 MEQ Xylocaine 2 ML 522 / 522 In Dextrose 5% 500 ML @ 130.5 mls/hr IVPB Q4H JAXON Rx#:[id number] Oral 600 / 600 0 / 0 360 / 360 Output: Urine 0 / 0 0 / 0 Other: Meal Dinner Breakfast Stool Consistency loose # Voids 1 1 # Bowel Movements 1 Blood Glucose* 128 128 - General physical appearance well nourished, no distress, no pain, obese - Eyes PERRL, normal ocular movement - ENT normal mucosa, normocephalic - Respiratory normal expansion, clear to auscultation - Abdomen Abdomen: Present: bowel sounds present, soft, non tender Hernia: incisional - Integumentary no rash, no growths - Neurologic CN 2-12 grossly intact - Musculoskeletal normal posture - Psychiatric oriented to time, oriented to person, speech is normal, memory intact - Labs 06/17/16 04:30 06/18/16 05:17 Diabetes panel 06/18/16 Range/Units 05:17 Potassium 2.9 L (3.5-4.5) mEq/L Pituitary panel 06/18/16 Range/Units 05:17 Potassium 2.9 L (3.5-4.5) mEq/L Adrenal panel 06/18/16 Range/Units 05:17 Potassium 2.9 L (3.5-4.5) mEq/L - Attending Attestation I examined this patient and my medical decision-making was reviewed with the OIL PIPELINE DISPATCHER/PA/Advanced Practice Nurse/Resident Physician. I agree with the documented findings, disposition and treatment plan as described except to the extent set forth below.
[2016-06-18 10:40] VITALS: BP 122/83
--- NOTE | 2016-06-18 11:48 | Discharge Summary ---
<Kevin Kaur - Last Filed: 06/18/16 17:33> Date of Encounter: 06/18/16 Time of Encounter: 11:38 - Discharge Diagnosis (1) Small bowel obstruction Priority: Primary Status: Acute (2) DM (diabetes mellitus), type 2 Priority: Secondary Status: Chronic Qualifiers: Diabetes mellitus complication status: with hyperglycemia Diabetes mellitus usp insulin use: without tank terminal gauger use Qualified Code(s): E11.65 - Type 2 diabetes mellitus with hyperglycemia (3) Hypokalemia Priority: Secondary Status: Acute (4) Ileus Priority: Secondary Status: Resolved (5) DVT prophylaxis Priority: Secondary Status: Acute - Discharge Medications Prescriptions: Potassium Chloride [K-Tab ER] 20 meq PO DAILY #10 tablet.er Home Medications: Aspirin [Lo-Dose Aspirin EC] 325 mg PO DAILY 06/11/16 [History] Atorvastatin [Lipitor] 40 mg PO DAILY 06/11/16 [History] Bupropion HCl [Zyban] 150 mg PO DAILY 06/11/16 [History] Cholecalciferol (D-3) [Vitamin D] 2,000 unit PO DAILY 06/11/16 [History] Furosemide [Lasix] 40 mg PO DAILY 06/11/16 [History] GlipiZIDE [Glucotrol] 5 mg PO BID 06/11/16 [History] Metformin [Glucophage] 850 mg PO TID 06/11/16 [History] Spironolactone [Aldactone] 25 mg PO DAILY 06/11/16 [History] Testosterone [Androderm] 2 mg TD DAILY 06/11/16 [History] Carvedilol [Coreg] 6.25 mg PO BID 06/16/16 [History] Potassium Chloride [K-Tab ER] 20 meq PO DAILY #10 tablet.er 06/18/16 [Rx] Allergies/Adverse Reactions: Allergies No Known Allergies Allergy (Verified 06/10/16 22:20) Procedures/tests Complete & Pending: Procedures Performed prior 72 hours Category Date Time Status ECG 12 lead ECG [ECG] Routine Y 06/16/16 05:40 Completed Date of admission: 06/16/16 11:23 [facility] care physician: [facility] Consults: Surgery Discharging clinician: Kevin Kaur Anticipated date of discharge: 06/18/16 - Patient Status Disposition: Home, Self-Care Condition: Fair Functional capacity at discharge: independent ambulation Overall status at discharge: patient is progressing back to baseline - Discharge Instructions Follow Up With: DANIELLA,PCP [Primary Care Provider] - 06/24/16 1:30 pm (F/u in a week for hospital d/ c f/u.) - Diet and Activity Activity: resume usual activities as tolerated Diet: diabetic diet, low fat, low cholesterol, low salt diet Hospital course: Mr. Winston is a 51 year old male with hx of chronic systolic CHF who presented to ER with cc of abdominal pain, CT of abd done and it showed ileus, pt was admitted for same reason, surgery was consulted, he has diagnosed with small bowel obstruction the subsequent day, NG tube was placed, fair amount of output obtained, he was having bowel rest with IV fluid, low potassium during this hospital stay was appropriately corrected, subsequent acute abd series showed decreased gas through the bowel therefore his condition improved, NG tube was removed, he was able to tolerate diet and had a bowel movement the day before the d/c, therefore he will be d/c to home today in stable condition. - Time Spent with Patient Total time spent providing and/or coordinating discharge services: - Constitutional Vitals: Temp Pulse Resp BP Pulse Ox 97.9 F 104 18 122/83 93 L 06/18/16 10:00 06/18/16 10:00 06/18/16 10:00 06/18/16 10:06/18/16 10:00 General appearance: Present: cooperative, A&O X 3, pleasant, no acute distress, obese, answers questions appropriately - Head Head exam: Present: atraumatic, normocephalic - Eye Eye exam: Present: PERRL, conjuntiva pink, sclera anicteric Pupils: Present: PERRL - Neck Neck exam general surgery: Present: supple, trachea midline. Absent: lymphadenopathy - Respiratory Respiratory exam: Present: CTAB. Absent: accessory muscle use, rales, rhonchi, wheezes - Cardiovascular Cardiovascular exam: Present: RRR, +S1, +S2. Absent: diastolic murmur, gallop, rubs, systolic murmur - GI/Abdominal GI/Abdominal exam: Present: normal bowel sounds, soft, no peritoneal signs. Absent: distended, tenderness - Extremities Exam Extremities exam: Present: warm, radial pulses palpable and symetrical. Absent : calf tenderness, cyanotic, pedal edema - Neurological Exam Neurological exam: Present: CN II-XII intact, oriented X3, no focal deficits. Absent: pronater drift, facial droop, speech deficit - Skin Skin exam: Present: dry, intact <R[place] Betty - Last Filed: 06/18/16 18:15> Date of Encounter: 06/18/16 Procedures/tests Complete & Pending: Procedures Performed prior 72 hours Category Date Time Status ECG 12 lead ECG [ECG] Routine Y 06/16/16 05:40 Completed Date of admission: 06/16/16 11:23 Primary care physician: PCP [facility] Hospital course: Mr. Winston is a 51 year old male - Time Spent with Patient Total time spent providing and/or coordinating discharge services: - Constitutional Vitals: Temp Pulse Resp BP Pulse Ox 97.9 F 104 18 122/83 93 L 06/18/16 10:00 06/18/16 10:00 06/18/16 10:00 06/18/16 10:00 06/18/16 10:00 - Attending Attestation I examined this patient and my medical decision-making was reviewed with the MAT MACHINE OPERATOR/PA/Advanced Practice Nurse/Resident Physician. I agree with the documented findings, disposition and treatment plan as described except to the extent set forth below. Patient stable for discharge today. D/W Dr. Kaur.
== END 2016-06-18 13:50 | disposition home or self-care (01) | DRG 394 ==
LOC: 3ANU 17:12 → EMEROO 17:12 → SUATTDRO 19:20 → 3ANU 20:43 → SUATTDRO 06-16 11:23
PROVIDERS: ADMIT Family Medicine; ATTEND Internal Medicine

== ENCOUNTER 2017-09-21 21:40 | Inpatient (IN) ==
--- NOTE | 2017-09-21 22:12 | Emergency Department Note ---
Disposition Clinical Impression: Dyspnea, CHF exacerbation Disposition: Admitted As Inpatient Condition: Fair General Adult HPI - General Chief complaint: ED Shortness of Breath/Dyspnea Stated complaint: SoB Time Seen by Provider: 09/21/17 21:42 Source: patient, EMS Limitations: no limitations - History of Present Illness HPI Narrative: Transfer from [place], Complete work up, previous history ischemic cardiomyopathy, now with increasing LOPEZ. No beds at [place]. Diuresis prior to transfer by [facility], labs stable, elevated BNP. Pain Scale: 0 - Related Data Home Medications Medication Instructions Recorded Confirmed Aspirin [Lo-Dose Aspirin EC] 325 mg PO DAILY 06/11/16 09/21/17 Atorvastatin [Lipitor] 40 mg PO DAILY 06/11/16 09/21/17 Cholecalciferol (D-3) [Vitamin D] 2,000 unit PO DAILY 06/11/16 09/21/17 Furosemide [Lasix] 60 mg PO DAILY 06/11/16 09/22/17 Spironolactone [Aldactone] 25 mg PO DAILY 06/11/16 09/21/17 buPROPion HCl [Zyban] 150 mg PO DAILY 06/11/16 09/21/17 glipiZIDE [Glucotrol] 5 mg PO BID 06/11/16 09/21/17 metFORMIN [Glucophage] 850 mg PO TID 06/11/16 09/21/17 Carvedilol [Coreg] 12.5 mg PO BID 06/16/16 09/21/17 Lisinopril [Zestril] 10 mg PO DAILY 09/21/17 09/21/17 Allergies Allergy/AdvReac Type Severity Reaction Status Date / Time No Known Allergies Allergy Verified 09/21/17 22:12 Past Medical History - Past Medical History Medical history: Reports: cancer, CHF, COPD, coronary artery disease, diabetes, myocardial infarction Surgical history: Reports: pacemaker/AICD, other (orchidectomy and lymph node removal) Psychiatric history: Reports: anxiety, depression - Social History Smoking Status: Never smoker Smokeless Tobacco Status: No Alcohol use: Reports: none Drug use: Reports: none Physical Exam - General Limitations: no limitations General appearance: alert, in no apparent distress Course Vital Signs Temperature 98.2 F 09/21/17 21:44 Pulse Rate 104 09/21/17 21:44 Respiratory Rate 22 09/21/17 21:44 Blood Pressure 131/88 09/21/17 21:44 O2 Sat by Pulse Oximetry 99 09/21/17 21:44 Temperature 98.2 F 09/23/17 03:53 Pulse Rate 82 09/23/17 03:53 Respiratory Rate 17 09/23/17 03:53 Blood Pressure 112/75 09/23/17 03:53 O2 Sat by Pulse Oximetry 96 09/23/17 03:53 Oxygen Delivery Oxygen Delivery Nasal Cannula Medical Decision Making - Lab Data Result diagrams: 09/22/17 00:48 09/22/17 00:48
--- NOTE | 2017-09-21 22:14 | Emergency Department Note ---
Disposition Clinical Impression: Dyspnea Qualifiers: Dyspnea type: unspecified Qualified Code(s): R06.00 - Dyspnea, unspecified CHF exacerbation Qualifiers: Heart failure type: unspecified Qualified Code(s): I50.9 - Heart failure, unspecified Disposition: Admitted As Inpatient Condition: Fair Time of Disposition: 22:33 General Adult HPI - General Chief complaint: ED Shortness of Breath/Dyspnea Stated complaint: SoB Time Seen by Provider: 09/21/17 21:42 Source: patient, EMS Mode of arrival: EMS Limitations: no limitations Nursing Notes Reviewed: Yes Vital Signs Reviewed: Yes - History of Present Illness HPI Narrative: Patient is a 52-year-old male that presents the emergency department from the [facility] via EMS for congestive heart failure. Patient states that he has had severe worsening of his shortness of breath. Patient denies any chest pain. Patient states that he does have some skin swelling in his lower extremity so over this and is chronic for him he does not feel that it is significantly worse at this time. Patient does state that he feels like he should be wearing oxygen during the day now because he has been more short of breath. He states that he wears oxygen at night and his CPAP. Patient states that his symptoms are worse when he lays flat. Pain Scale: 0 - Related Data Home Medications Medication Instructions Recorded Confirmed Aspirin [Lo-Dose Aspirin EC] 325 mg PO DAILY 06/11/16 09/21/17 Atorvastatin [Lipitor] 40 mg PO DAILY 06/11/16 09/21/17 Cholecalciferol (D-3) [Vitamin D] 2,000 unit PO DAILY 06/11/16 09/21/17 Furosemide [Lasix] 40 mg PO DAILY 06/11/16 09/21/17 Spironolactone [Aldactone] 25 mg PO DAILY 06/11/16 09/21/17 buPROPion HCl [Zyban] 150 mg PO DAILY 06/11/16 09/21/17 glipiZIDE [Glucotrol] 5 mg PO BID 06/11/16 09/21/17 metFORMIN [Glucophage] 850 mg PO TID 06/11/16 09/21/17 Carvedilol [Coreg] 12.5 mg PO BID 06/16/16 09/21/17 Furosemide [Lasix] 60 mg PO BID 09/21/17 09/21/17 Lisinopril [Zestril] 10 mg PO DAILY 09/21/17 09/21/17 Allergies Allergy/AdvReac Type Severity Reaction Status Date / Time No Known Allergies Allergy Verified 09/21/17 22:12 All systems ED: reviewed and negative except as stated. Cardiovascular: Denies: chest pain Respiratory: Reports: dyspnea Gastrointestinal: Denies: abdominal pain, nausea Hematological/Lymphatic: Reports: other (bilateral lower extremity swelling) Past Medical History - Past Medical History Medical history: Reports: cancer, CHF, COPD, coronary artery disease, diabetes, myocardial infarction Surgical history: Reports: pacemaker/AICD, other (orchidectomy and lymph node removal) Psychiatric history: Reports: anxiety, depression - Social History Smoking Status: Never smoker Smokeless Tobacco Status: No Alcohol use: Reports: none Drug use: Reports: none Physical Exam - General Limitations: no limitations General appearance: alert, in no apparent distress - Head Head exam: atraumatic, normocephalic - Eye Eye exam: Present: normal appearance, EOMI - Neck Neck exam: Present: normal inspection, full ROM, trachea midline - Respiratory Respiratory exam: Present: normal lung sounds bilaterally. Absent: respiratory distress, wheezes - Cardiovascular Cardiovascular exam: Present: regular rate, normal rhythm, normal heart sounds, +S1, +S2 - Abdominal Exam Abdominal exam: Present: soft, Non-Tender, normal bowel sounds - Extremities Exam Extremities exam: Present: other (Due to 3+ pitting edema bilateral lower extremity's.) - Neurological Exam Neurological exam: Present: alert, oriented X3 - Psychiatric Psychiatric exam: Present: normal affect, normal mood - Skin Skin exam: Present: warm, dry, intact Course Vital Signs Temperature 98.2 F 09/21/17 21:44 Pulse Rate 104 09/21/17 21:44 Respiratory Rate 22 09/21/17 21:44 Blood Pressure 131/88 09/21/17 21:44 O2 Sat by Pulse Oximetry 99 09/21/17 21:44 Temperature 98.2 F 09/21/17 21:44 Pulse Rate 104 09/21/17 21:44 Respiratory Rate 20 09/21/17 22:27 Blood Pressure 118/88 09/21/17 22:27 O2 Sat by Pulse Oximetry 99 09/21/17 21:44 Oxygen Delivery Oxygen Delivery Nasal Cannula Medical Decision Making - MDM Narrative Medical decision making narrative: Due to the patient presenting to the emergency department from the [facility] and ready having a workup that is been done I do not feel that there is any other laboratory testing is indicated at this time. Patient's troponin was negative. His BNP was significantly elevated at greater than 3000. Feel that this is likely a CHF exacerbation. The patient will be admitted to the hospital for further evaluation and management at this time. Dr. Costello talked to the admitting hospitalist and he has accepted the patient to their service. The patient be admitted to the hospital at this time for further evaluation and management. - Medical Records Medical records reviewed: Yes I reviewed the patient's medical records. - Lab Data Lab results reviewed: Yes I reviewed the patient's lab results. - Radiology Data Radiology results reviewed: Yes I reviewed the patient's radiology results.
[2017-09-21] MEDS ORDERED: Naloxone 0.4 MG/ML INJ IVP PRN (23:47)
[2017-09-21] MEDS ORDERED: Acetaminophen 325 MG TABLET PO PRN (23:47)
[2017-09-21] MEDS ORDERED: D5% in Water 1,000 ML IVC PRN (23:50)
[2017-09-21] MEDS ORDERED: *HR* Dextrose 50 % in Water (Syg) 50 ML SYRINGE IVP PRN (23:50)
[2017-09-21] MEDS ORDERED: Dextrose Gel 15 GM/37.5 ML TUBE PO PRN ×2 (23:50)
--- NOTE | 2017-09-21 23:51 | Internal Med History&Physical ---
Date of Encounter: 09/21/17 Time of Encounter: 23:51 Internal Medicine - H&P: HPI Chief complaint: Shortness of breath Admitted From: Emergency Dept Plans for Post Hospital Care: Home History of present illness: Mr. Winston is a 52 year old male with h/o- severe dilated cardiomyopathy, was sent from [place] ER with c/o- sudden onset of shortness of breath. Patient reports that he was in his usual state of health until this afternoon, when he had a sudden onset of shortness of breath, worse with exertion, and he just could not catch his breath. No chest pain, palpitations, cough, fever/chills. He does have leg swelling and some dyspnea at baseline. He has home O2 and wears CPAP at night, and he is compliant. Past Med Surg Social Fam HX - Past Medical History Source: patient Medical history: cancer (h/o testicular), CHF, coronary artery disease, diabetes , myocardial infarction Psychiatric history: anxiety, depression - Past Surgical History Surgical History: pacemaker/AICD, other (orchiectomy) - Social History Smoking Status: Never smoker Smokeless Tobacco Status: No Alcohol use: none Drug use: none Occupational status: disabled Current living situation: Home, With Family Activity Level: Independent ambulation Recent Out of Country Travel Within the Last 8 Weeks: No Exposure or Possible Exposure to Illness During Travel: No - Family History Mother Living Status: Still Living Hx Family Cardiac Disorders: Yes Father Hx Family Cardiac Disorders: Yes (CAD) Internal Medicine - H&P: Meds Aspirin [Lo-Dose Aspirin EC] 325 mg PO DAILY 06/11/16 [History] Atorvastatin [Lipitor] 40 mg PO DAILY 06/11/16 [History] Cholecalciferol (D-3) [Vitamin D] 2,000 unit PO DAILY 06/11/16 [History] Furosemide [Lasix] 40 mg PO DAILY 06/11/16 [History] Spironolactone [Aldactone] 25 mg PO DAILY 06/11/16 [History] buPROPion HCl [Zyban] 150 mg PO DAILY 06/11/16 [History] glipiZIDE [Glucotrol] 5 mg PO BID 06/11/16 [History] metFORMIN [Glucophage] 850 mg PO TID 06/11/16 [History] Carvedilol [Coreg] 12.5 mg PO BID 06/16/16 [History] Furosemide [Lasix] 60 mg PO BID 09/21/17 [History] Lisinopril [Zestril] 10 mg PO DAILY 09/21/17 [History] 3 Allergy/AdvReac Type Severity Reaction Status Date / Time No Known Allergies Allergy Verified 09/21/17 22:12 All Systems PM: A 10-system review of systems was performed and is negative for pertinent findings except as documented above in the HPI. - Constitutional Constitutional: no chills, no fever(s), no night sweats - EENT Eyes: no change in vision, no discharge, no pain, no photophobia Ears: no ear discharge, no ear pain, no tinnitus Nose, mouth and throat: no dysphagia, no nasal discharge, no neck pain, no sore throat - Cardiovascular Cardiovascular ROS IM: dyspnea, dyspnea on exertion, edema, no chest pain, no diaphoresis, no lightheadedness, no palpitations, no syncope - Respiratory Respiratory: dyspnea on exertion, no cough, no dyspnea, no wheezing, no excessive phlegm production - Gastrointestinal Gastrointestinal: no abdominal pain, no diarrhea, no hematemesis, no hematochezia, no melena, no nausea, no vomiting - Musculoskeletal Musculoskeletal ROS IM: no numbness, no tingling - Integumentary Integumentary IM: no rash, no unusual bruising - Neurological Neurological ROS: no confusion, no convulsions, no focal weakness, no numbness, no tingling, no tremor(s) - Hematologic/Lymphatic Hematologic/Lymphatic: no easy bruising - Constitutional Vitals: Temp Pulse Resp BP Pulse Ox 97.4 F L 105 18 119/87 95 09/21/17 22:56 09/21/17 22:56 09/21/17 22:56 09/21/17 22:56 09/21/17 22:56 General appearance: Present: A&O X 3, morbidly obese, answers questions appropriately - Respiratory Respiratory exam: Present: CTAB. Absent: accessory muscle use, rales, rhonchi, wheezes - Cardiovascular Cardiovascular exam: Present: RRR, +S1, +S2. Absent: diastolic murmur, gallop, rubs, systolic murmur - GI/Abdominal GI/Abdominal exam: Present: normal bowel sounds, soft (obese), no peritoneal signs. Absent: distended, tenderness - Extremities Exam Extremities exam: Present: full ROM, pedal edema, warm, radial pulses palpable and symmetrical. Absent: calf tenderness, cyanotic - Neurological Exam Neurological exam: Present: CN II-XII intact, oriented X3, no focal deficits. Absent: pronater drift, facial droop, speech deficit - Skin Skin exam: Present: dry, intact Internal Med - H&P Results - Labs CBC & Chem 7: 09/22/17 00:48 09/22/17 00:48 - EKG Data -: EKG Interpreted by Myself EKG shows normal: sinus rhythm (IVCD) Rate: tachycardia - Assessment and plan (1) CHF exacerbation Current Visit: Yes Status: Acute Assessment and plan: Per [place] records, patient has EF around 15-20% with dilated cardiomyopathy, nonischemic; on Lasix and Spironolactone at home; continue IV Lasix, fluid restriction, beta vic, ACEI; continue Telemetry monitoring and trend Troponins; supplemental O2; Qualifiers: Heart failure type: systolic Qualified Code(s): I50.23 - Acute on chronic systolic (congestive) heart failure (2) NATHALY (obstructive sleep apnea) Current Visit: Yes Status: Chronic Assessment and plan: continue nocturnal CPAP; (3) CAD (coronary artery disease) Current Visit: Yes Status: Chronic Assessment and plan: continue ASA, statin, beta vic, ACEI; Qualifiers: Coronary Disease-Associated Artery/Lesion type: [place] artery [place] vs. transplanted heart: [place] heart Associated angina: without angina Qualified Code(s): I25.10 - Atherosclerotic heart disease of [place] coronary artery without angina pectoris (4) AICD (automatic cardioverter/defibrillator) present Current Visit: Yes Status: Chronic (5) DM (diabetes mellitus), type 2 Current Visit: Yes Status: Chronic Assessment and plan: Accucheck blood glucose monitoring with basal bolus insulin regimen; diabetic diet; Qualifiers: Diabetes mellitus intermodal customer service insulin use: without intermodal customer service use Diabetes mellitus complication status: with hyperglycemia Qualified Code(s): E11.65 - Type 2 diabetes mellitus with hyperglycemia (6) HLD (hyperlipidemia) Current Visit: Yes Status: Chronic Qualifiers: Hyperlipidemia type: unspecified Qualified Code(s): E78.5 - Hyperlipidemia , unspecified - Time Spent With Patient Total time spent is greater than 50% in coordination of care (as documented) at patient's floor/unit and/or counseling patient:
[2017-09-22] MEDS: Furosemide 40 MG/4 ML VIAL IVP SCH ×3 (00:33→16:42)
[2017-09-22 01:07] LABS: Basophils # 0.1 K/mcL (0.0-0.2); Basophils % 0.9 %; Eosinophils # 0.3 K/mcL (0.0-0.6); Eosinophils % 2.7 %; Hematocrit 45.6 % (37.5-50.1); Hemoglobin 14.3 g/dL (12.9-16.9); Immature Granulocytes % 0.1 % (0-4); Lymphocytes # 2.1 K/mcL (0.6-4.6); Lymphocytes % 22.2 %; Mean Corpuscular HGB Conc 31.4 g/dL (31.6-35.5); Mean Corpuscular Hemoglobin 29.1 pg (28.0-33.3); Mean Corpuscular Volume 92.9 fL (83.0-100.0); Mean Platelet Volume 10.1 fL (9.4-12.4); Monocytes # 0.7 K/mcL (0.0-1.3); Neutrophils # 6.1 K/mcL (1.6-8.9); Platelet Count 267 K/mcL (140-400); Red Blood Count 4.91 M/mcL (4.19-5.50); Red Cell Distribution Width 15.1 % (11.5-14.5); Segmented Neutrophils % 66.1 %
[2017-09-22 01:28] LABS: BUN/Creatinine Ratio 17 (6-26); Blood Urea Nitrogen 18 mg/dL (6-20); Calcium 9.4 mg/dL (8.6-10.3); Carbon Dioxide 27 mEq/L (23-29); Chloride 100 mEq/L (98-107); Glucose 117 mg/dL (70-105); Magnesium 1.7 mg/dL (1.6-2.6); Osmolality,Calculated 295 (280-300); Potassium 3.6 mEq/L (3.5-5.1); Sodium 141 mEq/L (136-145); eGFR For African Americans > 60 (> 60); eGFR For Non-African Americans > 60 (> 60)
[2017-09-22] MEDS: *HR* Enoxaparin 40 MG/0.4 ML SYRINGE SQ SCH (05:48)
[2017-09-22] MEDS: Insulin LISPRO 300 UNITS/3 ML VIAL SQ SCH ×3 (09:56→16:43)
[2017-09-22] MEDS: BuPROPion XL (24 HR) 150 MG TABLET PO SCH (09:57)
[2017-09-22] MEDS: Cholecalciferol (D-3) 1,000 UNIT TABLET PO SCH (09:57)
[2017-09-22] MEDS: Aspirin Enteric Coated 325 MG Tablet PO SCH (09:57)
[2017-09-22] MEDS ORDERED: Insulin LISPRO 300 UNITS/3 ML VIAL SQ SCH (21:00)
[2017-09-22] MEDS ORDERED: Perflutren Lipid Microsphere 1.3 ML in 0.9 % Sodium Chloride 8.7 ML IVP ONE (21:48)
--- NOTE | 2017-09-22 22:10 | Event Note ---
Date of Encounter: 09/22/17 Time of Encounter: 16:57 S: Patient had no acute events overnight. He is breathing much better this AM. He states that he has had good urine output. He denies chest pain, fever, chills, nausea, vomiting, or abdominal pain. He has no complaints at this time. O: Gen - Awake, alert, well-nourished, no acute distress HEENT - NCAT, PERRLA, EOMI, hearing grossly intact, oropharynx benign CV - RRR, normal S1 and S2, no M/R/G, 1+ BLE edema Resp - Normal WOB, CTAB, no W/R/R GI - Soft, NT/ND, no masses, normal bowel sounds, no HSP Skin - Warm, dry, no rashes/lesions/ulcers Psych - Normal mood and affect, no depression or anxiety A/P: Acute on Chronic Systolic CHF - Continue diuresis with IV lasix BID. Continue fluid restriction. Monitor strict I&Os and daily weights. Continue home medications. Repeat ECHO as last was more than 17 months ago. Keep outpatient cardiology follow up.
[2017-09-23] MEDS: *HR* Enoxaparin 40 MG/0.4 ML SYRINGE SQ SCH (05:14)
[2017-09-23] MEDS: Cholecalciferol (D-3) 1,000 UNIT TABLET PO SCH (08:29)
[2017-09-23] MEDS: BuPROPion XL (24 HR) 150 MG TABLET PO SCH (08:29)
[2017-09-23] MEDS: Furosemide 40 MG/4 ML VIAL IVP SCH (08:29)
[2017-09-23] MEDS: Aspirin Enteric Coated 325 MG Tablet PO SCH (08:29)
[2017-09-23] MEDS ORDERED: Spironolactone 25 MG TABLET PO SCH (09:00)
[2017-09-23 09:49] LABS: Basophils % 0.6 %; Eosinophils # 0.3 K/mcL (0.0-0.6); Eosinophils % 3.9 %; Hematocrit 42.3 % (37.5-50.1); Hemoglobin 13.9 g/dL (12.9-16.9); Immature Granulocytes % 0.3 % (0-4); Lymphocytes # 1.4 K/mcL (0.6-4.6); Lymphocytes % 19.5 %; Mean Corpuscular HGB Conc 32.9 g/dL (31.6-35.5); Mean Corpuscular Volume 94.2 fL (83.0-100.0); Mean Platelet Volume 10.1 fL (9.4-12.4); Monocytes # 0.6 K/mcL (0.0-1.3); Monocytes % 7.8 %; Neutrophils # 4.8 K/mcL (1.6-8.9); Platelet Count 232 K/mcL (140-400); Red Blood Count 4.49 M/mcL (4.19-5.50); Red Cell Distribution Width 14.9 % (11.5-14.5); Segmented Neutrophils % 67.9 %
[2017-09-23 09:55] LABS: BUN/Creatinine Ratio 18 (6-26); Blood Urea Nitrogen 17 mg/dL (6-20); Calcium 9.4 mg/dL (8.6-10.3); Carbon Dioxide 30 mEq/L (23-29); Chloride 100 mEq/L (98-107); Glucose 163 mg/dL (70-105); Osmolality,Calculated 295 (280-300); Potassium 3.2 mEq/L (3.5-5.1); Sodium 140 mEq/L (136-145); eGFR For African Americans > 60 (> 60); eGFR For Non-African Americans > 60 (> 60)
--- NOTE | 2017-09-23 11:08 | Discharge Summary ---
- NOTES TO OUTPATIENT PROVIDER Notes to Outpatient Provider: Follow up with PCP in 2-3 days after discharge. Recheck BMP at that time (hypokalemia). Adjust lasix as needed. Follow up with cardiology as directed. Orders not resulted at time of discharge: Pending orders 09/24/17 04:00 Basic Metabolic Panel AM 0400 CBC [Complete Blood Count] [HEME] AM 0400 Date of Encounter: 09/23/17 Time of Encounter: 11:05 - Discharge Diagnosis (1) CHF exacerbation Priority: Primary Status: Acute Qualifiers: Heart failure type: systolic Qualified Code(s): I50.23 - Acute on chronic systolic (congestive) heart failure (2) AICD (automatic cardioverter/defibrillator) present Priority: Secondary Status: Chronic (3) HLD (hyperlipidemia) Priority: Secondary Status: Chronic Qualifiers: Hyperlipidemia type: unspecified Qualified Code(s): E78.5 - Hyperlipidemia , unspecified (4) DM (diabetes mellitus), type 2 Priority: Secondary Status: Chronic Qualifiers: Diabetes mellitus mcc insulin use: without mcc use Diabetes mellitus complication status: with hyperglycemia Qualified Code(s): E11.65 - Type 2 diabetes mellitus with hyperglycemia (5) NATHALY (obstructive sleep apnea) Priority: Secondary Status: Chronic (6) CAD (coronary artery disease) Priority: Secondary Status: Chronic Qualifiers: Coronary Disease-Associated Artery/Lesion type: [place] artery [place] vs. transplanted heart: [place] heart Associated angina: without angina Qualified Code(s): I25.10 - Atherosclerotic heart disease of [place] coronary artery without angina pectoris Hospital course: Mr. Winston is a 52 year old male admitted for acute exacerbation of systolic congestive heart failure. Patient was admitted to general medical floor with telemetry. He was started on IV lasix 40 mg BID. He was placed on fluid restriction to 1.2 liters/day. He was placed on supplemental oxygen with nebs PRN. He had good urine output. Respiratory status improved. ECHO was obtained and showed LVEF 15-20%, severely dilated left ventricle, severe global left ventricular systolic dysfunction, indeterminate diastolic function, severely dilated left atrium, mild mitral regurgitation, and moderate pulmonary hypertension. Patient was able to ambulate without decompensation. He states that he is back to near his baseline respiratory status. He wears continuous oxygen 2 L by [place] at home. He follows up with [facility]. SW working on getting him to [facility]. He states that he is ready to go home. He was given potassium repletion for hypokalemia. He will be discharged home on lasix 40 mg PO BID. He will follow up with PCP in 2-3 days after discharge. BMP can be rechecked at that time (hypokalemia), and lasix dose adjusted as needed. He will follow up with cardiology as directed. Patient has met maximum benefit of this hospitalization and will be discharged home in stable condition. Discharge discussed with: patient, nurse, social work, other (Pharmacist) - Time Spent with Patient Total time spent providing and/or coordinating discharge services: Greater than 30 minutes - Discharge Medications Prescriptions: Furosemide [Lasix] 40 mg PO BID 7 Days #14 tablet Home Medications: Aspirin [Lo-Dose Aspirin EC] 325 mg PO DAILY 06/11/16 [History] Atorvastatin [Lipitor] 40 mg PO DAILY 06/11/16 [History] Cholecalciferol (D-3) [Vitamin D] 2,000 unit PO DAILY 06/11/16 [History] Spironolactone [Aldactone] 25 mg PO DAILY 06/11/16 [History] buPROPion HCl [Zyban] 150 mg PO DAILY 06/11/16 [History] glipiZIDE [Glucotrol] 5 mg PO BID 06/11/16 [History] metFORMIN [Glucophage] 850 mg PO TID 06/11/16 [History] Carvedilol [Coreg] 12.5 mg PO BID 06/16/16 [History] Lisinopril [Zestril] 10 mg PO DAILY 09/21/17 [History] Furosemide [Lasix] 40 mg PO BID 7 Days #14 tablet 09/23/17 [Rx] Allergies/Adverse Reactions: 3 Allergy/AdvReac Type Severity Reaction Status Date / Time No Known Allergies Allergy Verified 09/21/17 22:12 Date of admission: 09/21/17 22:12 Primary care physician: PCP [facility] Consults: 09/21/17 22:51 Consult to Pastoral Services [CONS] Routine Comment: Discharging clinician: Elliot Carter Anticipated date of discharge: 09/23/17 - Constitutional Vitals: Temp Pulse Resp BP Pulse Ox 97.8 F 81 16 104/73 96 09/23/17 07:58 09/23/17 07:58 09/23/17 07:58 09/23/17 07:58 09/23/17 07:58 General appearance: Present: cooperative, A&O X 3, morbidly obese, pleasant, no acute distress, answers questions appropriately - Respiratory Respiratory exam: Present: CTAB. Absent: accessory muscle use, rales, rhonchi, wheezes Additional comments: Normal WOB - Cardiovascular Cardiovascular exam: Present: RRR, +S1, +S2. Absent: diastolic murmur, gallop, rubs, systolic murmur Additional comments: 1+ BLE edema - GI/Abdominal GI/Abdominal exam: Present: normal bowel sounds, soft. Absent: distended, hepatomegaly, mass, splenomegaly, tenderness - Psychiatric Psychiatric exam: Present: normal affect, normal mood. Absent: agitated, anxious, depressed - Skin Skin exam: Present: dry, intact, warm. Absent: cyanosis, rash - Patient Status Disposition: Home, Self-Care Condition: Good Functional capacity at discharge: independent ambulation Overall status at discharge: patient is progressing back to baseline - Discharge Instructions [facility] With: [facility] Care Provider[facility] - Forms: ED Satisfaction Letter Additional Instructions: Follow up with PCP in 2-3 days after discharge. Recheck BMP at that time ( hypokalemia). Adjust lasix as needed. Follow up with cardiology as directed. - Diet and Activity Activity: resume usual activities as tolerated, wear oxygen at all times Diet: low fat, low cholesterol, low salt diet, other (Cardiac Diet, Fluid Restricted to 1.2 Liters/Day)
[2017-09-23 11:19] VITALS: BP 91/57
[2017-09-23] MEDS: Insulin LISPRO 300 UNITS/3 ML VIAL SQ SCH (12:08)
== END 2017-09-23 14:00 | disposition home or self-care (01) | DRG 292 ==
LOC: EMEROO 21:40 → 2ANU 22:12
PROVIDERS: ADMIT Internal Medicine; ATTEND Internal Medicine